=== PATIENT | male | born 1985 | race Hispanic/Latino ===

== ENCOUNTER 2017-08-06 20:28 | Emergency (ER) | payer BC ==
[~2017-08-06] VITALS: Ht 175.3 cm; Wt 117.9 kg
[~2017-08-06 20:28] MED LIST: IBP800T PO
--- OUTSIDE RECORDS SUMMARY | 2017-08-06 20:37 | XMS REPORT ---
Author Author NENA TEIXEIRA Organization [employer] Address Unknown Phone Unavailable Care Team Providers Care Helicopter Officer Name Role Phone NENA TEIXEIRA CP Unavailable Allergies No Known Allergies Problems Problem Type Condition Code Onset Dates Condition Status Problem Acute upper respiratory infections of unspecified site 465.9 Active Problem Acute pharyngitis 462 Active Problem Personal history of noncompliance with medical treatment, presenting hazards to health V15.81 Active Problem Other malaise and fatigue 780.79 Active Problem Unspecified constipation 564.00 Active Problem Hypertension 401.9 Active Problem Polyuria 788.42 Active Problem Diabetes mellitus without mention of complication, type II or unspecified type, uncontrolled 250.02 Active Problem Unspecified hemorrhoids without mention of complication 455.6 Active Problem Family history of diabetes mellitus V18.0 Active Assessment Abnormal LFTs R79.89 Active Problem Cough 786.2 Active Problem Other voice disturbance 784.49 Active Medications No Known Medications Procedures Procedure Coding System Code Date ACUTE HEPATITIS PANEL CPT-4 99231 Aug 18, 2015 Results No Known Results Summary Purpose eClinicalWorks Submission
--- OUTSIDE RECORDS SUMMARY | 2017-08-06 20:37 | XMS REPORT ---
Author Author NENA TEIXEIRA Organization [employer] Address Unknown Phone Unavailable Care Team Providers Care Home Appliance Installer Name Role Phone NENA TEIXEIRA CP Unavailable Allergies No Known Allergies Problems Problem Type Condition ICD-9 Code Onset Dates Condition Status Problem Acute upper respiratory infections of unspecified site 465.9 Active Problem Acute pharyngitis 462 Active Problem Personal history of noncompliance with medical treatment, presenting hazards to health V15.81 Active Problem Cough 786.2 Active Problem Other voice disturbance 784.49 Active Problem Other malaise and fatigue 780.79 Active Problem Unspecified constipation 564.00 Active Problem Hypertension 401.9 Active Problem Polyuria 788.42 Active Problem Diabetes mellitus without mention of complication, type II or unspecified type, uncontrolled 250.02 Active Problem Unspecified hemorrhoids without mention of complication 455.6 Active Problem Family history of diabetes mellitus V18.0 Active Medications No Known Medications Results No Known Results Summary Purpose eClinicalWorks Submission
--- OUTSIDE RECORDS SUMMARY | 2017-08-06 20:37 | XMS REPORT ---
Author Author NENA TEIXEIRA Organization [employer] Address Unknown Phone Unavailable Care Team Providers Care Furniture Shampooer Name Role Phone NENA TEIXEIRA CP Unavailable Allergies No Known Allergies Problems Problem Type Condition Code Onset Dates Condition Status Problem Personal history of noncompliance with medical treatment, presenting hazards to health V15.81 Active Problem Diabetes mellitus without mention of complication, type II or unspecified type, uncontrolled 250.02 Active Problem Acute pharyngitis 462 Active Problem Eye exam abnormal 793.99 Jul 19, 2015 Active Problem Other malaise and fatigue 780.79 Active Problem Hypertension 401.9 Active Problem Family history of diabetes mellitus V18.0 Active Problem Polyuria 788.42 Active Problem Unspecified constipation 564.00 Active Problem Unspecified hemorrhoids without mention of complication 455.6 Active Problem Cough 786.2 Active Problem Other voice disturbance 784.49 Active Problem Acute upper respiratory infections of unspecified site 465.9 Active Medications No Known Medications Results No Known Results Summary Purpose eClinicalWorks Submission
--- OUTSIDE RECORDS SUMMARY | 2017-08-06 20:37 | XMS REPORT ---
Author Author NENA TEIXEIRA Organization [employer] Address Unknown Phone Unavailable Care Team Providers Care Stockbroker Name Role Phone NENA TEIXEIRA CP Unavailable Allergies No Known Allergies Problems Problem Type Condition Code Onset Dates Condition Status Problem Diabetes mellitus without mention of complication, type II or unspecified type, uncontrolled 250.02 Active Problem Family history of diabetes mellitus V18.0 Active Problem Polyuria 788.42 Active Problem Ingrown toenail L60.0 Active Problem Hypertension 401.9 Active Problem Diabetes E11.9 Active Problem Unspecified constipation 564.00 Active Problem Unspecified hemorrhoids without mention of complication 455.6 Active Problem Eye exam abnormal 793.99 Jul 19, 2015 Active Problem Other malaise and fatigue 780.79 Active Problem Other voice disturbance 784.49 Active Problem Acute upper respiratory infections of unspecified site 465.9 Active Problem Personal history of noncompliance with medical treatment, presenting hazards to health V15.81 Active Problem Cough 786.2 Active Problem Acute pharyngitis 462 Active Medications No Known Medications Results No Known Results Summary Purpose eClinicalWorks Submission
--- OUTSIDE RECORDS SUMMARY | 2017-08-06 20:37 | XMS REPORT ---
Author Author NENA TEIXEIRA [facility] eClinicalWorks Address Unknown Phone Unavailable Care Team Providers Care Nurse Sane Name Role Phone NENA TEIXEIRA CP Unavailable Allergies, Adverse Reactions, Alerts Substance Reaction Event Type N.K.D.A. Info Not Available Non Drug Allergy Problems Problem Type Condition Code Onset Dates [...] hemorrhoids without mention of complication 455.6 Active Assessment Type 2 diabetes mellitus with complication E11.8 Active Problem Cough 786.2 Active Problem Other voice disturbance 784.49 Active Problem Acute upper respiratory infections of unspecified site 465.9 Active Medications Medication Code System Code Instructions Start Date End Date Status Dosage Norvasc [facility] [address]-76 10 MG Once a day Jun 21, 2014 1 tablet by Oral route 1 time per day metformin [facility] [address]-81 1,000 mg 2 times a day Jun 21, 2014February 1 tablet by Oral route 2 times per day Lisinopril-Hydrochlorothiazide [facility] [address]-03 20-25 MG Once a day Jun 21, 2014 take 1 tablet by Oral route 1 time per day Bydureon [facility] [address]-98 2 MG Subcutaneous once a week Sep 27, 2015 Oct 27, 2015 2mg Procedures Procedure Coding System Code Date MICROALBUMIN, QUANTITATIVE CPT-4 02380 Sep 27, 2015 Office Visit, Est Pt., Level 3 CPT-4 79588 Sep 27, 2015 MICROALBUMIN, SEMIQUANT CPT-4 57982 Sep 27, 2015 Vital Signs Date/Time: Sep 27, 2015 Temperature 98.1 F Weight 261.7 lbs Height 69 in BMI 38.64 Index Blood Pressure Diastolic 78 mmHg Blood Pressure Systolic 138 mmHg Cardiac Monitoring Heart Rate 84 bpm Results Name Result Date Reference Range Unit Abnormality Flag MICROALBUMIN, URINE (IN HOUSE) MICROALBUMIN/CREATININE RATIO, URINE Summary Purpose eClinicalWorks Submission
--- OUTSIDE RECORDS SUMMARY | 2017-08-06 20:37 | XMS REPORT ---
Author Author NENA TEIXEIRA Organization [employer] Address Unknown Phone Unavailable Care Team Providers Care Complex Director Name Role Phone NENA TEIXEIRA CP Unavailable Allergies, Adverse Reactions, Alerts Substance Reaction Event Type N.K.D.A. Info Not Available Non Drug Allergy Problems Problem Type Condition ICD-9 Code Onset [...] history of diabetes mellitus V18.0 Active Assessment Hypertension 401.9 Active Assessment Sore throat 462 Active Problem Cough 786.2 Active Problem Other voice disturbance 784.49 Active Medications Medication Code System Code Instructions Start Date End Date Status Dosage Lisinopril-Hydrochlorothiazide [facility] [address]-69 20-25 MG Once a day Jun 21, 2014 take 1 tablet by Oral route 1 time per day Norvasc [facility] [address]-24 10 MG Once a day Jun 21, 2014 1 tablet by Oral route 1 time per day Amoxicillin [facility] [address]-89 500 MG Orally 3 times a day Jul 11, 2015 Jul 18, 2015 1 tablet Procedures Procedure Coding System Code Date Office Visit, Est Pt., Level 3 CPT-4 78378 Jul 11, 2015 Vital Signs Date/Time: Jul 11, 2015 Temperature 98.0 F Weight 262.4 lbs Height 69 in BMI 38.75 Index Blood Pressure Diastolic 100 mmHg Blood Pressure Systolic 160 mmHg Cardiac Monitoring Heart Rate 86 bpm Results No Known Results Summary Purpose eClinicalWorks Submission
--- OUTSIDE RECORDS SUMMARY | 2017-08-06 20:37 | XMS REPORT ---
Author Author NENA TEIXEIRA Organization [employer] Address Unknown Phone Unavailable Care Team Providers Care Account Collector Name Role Phone NENA TEIXEIRA CP Unavailable [...] history of diabetes mellitus V18.0 Active Assessment Type 2 diabetes mellitus with unspecified complications E11.8 Active Problem Cough 786.2 Active Problem Other voice disturbance 784.49 Active Medications No Known Medications Results No Known Results Summary Purpose eClinicalWorks Submission
--- OUTSIDE RECORDS SUMMARY | 2017-08-06 20:37 | XMS REPORT ---
Author Author NENA TEIXEIRA Organization [employer] Address Unknown Phone Unavailable Care Team Providers Care Associate Team Physician Name Role Phone NENA TEIXEIRA CP Unavailable [...]
--- OUTSIDE RECORDS SUMMARY | 2017-08-06 20:37 | XMS REPORT ---
Author Author NENA TEIXEIRA [facility] eClinical[employer] Address Unknown Phone Unavailable Care Team Providers Care Recreation Instructor Name Role Phone NENA TEIXEIRA CP Unavailable [...] Problem Other malaise and fatigue 780.79 Active Assessment Ingrown toenail L60.0 Active Problem Other voice disturbance 784.49 Active Problem Acute upper respiratory infections of unspecified site 465.9 Active Assessment Diabetes E11.9 Active Problem Personal history of noncompliance with medical treatment, presenting hazards to health V15.81 Active Problem Cough 786.2 Active Problem Acute pharyngitis 462 Active Medications Medication Code System Code Instructions Start Date End Date Status Dosage Bydureon [facility] 04418147949 2 MG INJECT 2 MG SUBCUTANEOUSLY ONCE A WEEK Lisinopril [facility] [address]-21 20 mg Orally Once a day January 31, 2016 1 tablet Keflex [facility] [address]-34 500 MG Orally Twice a day May 15, 2016 May 22, 2016 2 capsule Norvasc [facility] [address]-66 10 MG Once a day Jun 21, 2014 1 tablet by Oral route 1 time per day MetFORMIN HCl ER [facility] [address]-96 500 MG Orally 2 times a day Aug 01, 2015 2 tablet with evening meal Invokana [facility] [address]-22 100 MG Orally Once a day January 31, 2016 1 tablet Procedures Procedure Coding System Code Date GLYCATED HEMOGLOBIN TEST CPT-4 37759 May 22, 2016 Office Visit, Est Pt., Level 3 CPT-4 80753 May 22, 2016 Vital Signs Date/Time: May 22, 2016 Cardiac Monitoring Heart Rate 88 bpm Weight 268.7 lbs Height 69 in BMI 39.68 Index Blood Pressure Diastolic 90 mmHg Blood Pressure Systolic 140 mmHg Results No Known Results Summary Purpose eClinicalWorks Submission
--- OUTSIDE RECORDS SUMMARY | 2017-08-06 20:37 | XMS REPORT ---
Author Author NENA TEIXEIRA Organization [employer] Address Unknown Phone Unavailable Care Team Providers Care Solution Spec Name Role Phone NENA TEIXEIRA CP Unavailable [...]
--- OUTSIDE RECORDS SUMMARY | 2017-08-06 20:38 | XMS REPORT ---
Author Author NENA TEIXEIRA [facility] eClinicalWorks Address Unknown Phone Unavailable Care Team Providers Care Carrier Associate Name Role Phone NENA TEIXEIRA CP Unavailable [...] history of diabetes mellitus V18.0 Active Assessment Diabetes mellitus without mention of complication, type II or unspecified type, uncontrolled 250.02 Active Assessment Encounter to establish care V65.8 Active Problem Cough 786.2 Active Assessment Hypertension 401.9 Active Problem Other voice disturbance 784.49 Active Medications Medication Code System Code Instructions Start Date End Date Status Dosage metformin [facility] [address]-41 1,000 mg 2 times a day Jun 21, 2014February 1 tablet by Oral route 2 times per day MetFORMIN HCl ER [facility] [address]-62 500 MG Orally 2 times a day Aug 01, 2015 2 tablet with evening meal Norvasc [facility] [address]-98 10 MG Once a day Jun 21, 2014 1 tablet by Oral route 1 time per day Lisinopril-Hydrochlorothiazide [facility] [address]-51 20-25 MG Once a day Jun 21, 2014 take 1 tablet by Oral route 1 time per day Procedures Procedure Coding System Code Date Office Visit, Est Pt., Level 4 CPT-4 10079 Aug 01, 2015 GLYCATED HEMOGLOBIN TEST CPT-4 92657 Aug 01, 2015 Vital Signs Date/Time: Aug 01, 2015 Temperature 98.8 F Weight 265.0 lbs Height 69 in BMI 39.13 Index Blood Pressure Diastolic 92 mmHg Blood Pressure Systolic 146 mmHg Cardiac Monitoring Heart Rate 80 bpm Results Name Result Date Reference Range Unit Abnormality Flag A1C (IN HOUSE) Summary Purpose eClinicalWorks Submission
--- OUTSIDE RECORDS SUMMARY | 2017-08-06 20:38 | XMS REPORT | Continuity of Care Document ---
Author Author [facility] Address Unknown Phone Unavailable Allergies Medications Problems Date Dx Coded Attending Type Code Diagnosis Diagnosed By 01/09/2010 401.1 HYPERTENSION, BENIGN ESSENTIAL 01/09/2010 MAYELA DDS, PEGGY F 401.1 HYPERTENSION, BENIGN ESSENTIAL 01/09/2010 CASTANO DO, ADAL K 401.1 HYPERTENSION, BENIGN ESSENTIAL 01/09/2010 CASTANO DO, ADAL K 401.1 HYPERTENSION, BENIGN ESSENTIAL 01/09/2010 CASTANO DO, ADAL K 401.1 HYPERTENSION, BENIGN ESSENTIAL 12/12/2011 462 PHARYNGITIS ACUTE 12/12/2011 MAYELA DDS, PEGGY F 462 PHARYNGITIS ACUTE 12/12/2011 CASTANO DO, ADAL K 462 PHARYNGITIS ACUTE 12/12/2011 CASTANO DO, ADAL K 462 PHARYNGITIS ACUTE 12/12/2011 CASTANO DO, ADAL K 462 PHARYNGITIS ACUTE 09/16/2012 465.9 UPPER RESPIRATORY INFECTION 09/16/2012 784.49 HOARSENESS 09/16/2012 786.2 COUGH 09/16/2012 MAYELA DDS, PEGGY F 465.9 UPPER RESPIRATORY INFECTION 09/16/2012 MAYELA DDS, PEGGY F 784.49 HOARSENESS 09/16/2012 MAYELA DDS, PEGGY F 786.2 COUGH 09/16/2012 CASTANO DO, ADAL K 465.9 UPPER RESPIRATORY INFECTION 09/16/2012 CASTANO DO, ADAL K 784.49 HOARSENESS 09/16/2012 CASTANO DO, ADAL K 786.2 COUGH 09/16/2012 CASTANO DO, ADAL K 465.9 UPPER RESPIRATORY INFECTION 09/16/2012 CASTANO DO, ADAL K 784.49 HOARSENESS 09/16/2012 CASTANO DO, ADAL K 786.2 COUGH 09/16/2012 CASTANO DO, ADAL K 465.9 UPPER RESPIRATORY INFECTION 09/16/2012 CASTANO DO, ADAL K 784.49 HOARSENESS 09/16/2012 OMAIRA CAMPA ADAL K 786.2 COUGH 05/11/2013 250.02 DIABETES MELLITUS WITHOUT MENTION OF COMPLICATION TYPE II OR UNSPECIFIED TYPE UNCONTROLLED 05/11/2013 788.42 POLYURIA 05/11/2013 V18.0 FAMILY HISTORY OF DIABETES MELLITUS 05/11/2013 MAYELA DDS, PEGGY F 250.02 DIABETES MELLITUS WITHOUT MENTION OF COMPLICATION TYPE II OR UNSPECIFIED TYPE UNCONTROLLED 05/11/2013 MAYELA DDS, PEGGY F 788.42 POLYURIA 05/11/2013 MAYELA DDS, PEGGY F V18.0 FAMILY HISTORY OF DIABETES MELLITUS 05/11/2013 CASTANO DO ADAL K 250.02 DIABETES MELLITUS WITHOUT MENTION OF COMPLICATION TYPE II OR UNSPECIFIED TYPE UNCONTROLLED 05/11/2013 CASTANO DO ADAL K 788.42 POLYURIA 05/11/2013 CASTANO DO ADAL K V18.0 FAMILY HISTORY OF DIABETES MELLITUS 05/11/2013 OMAIRA CAMPA ADAL K 250.02 DIABETES MELLITUS WITHOUT MENTION OF COMPLICATION TYPE II OR UNSPECIFIED TYPE UNCONTROLLED 05/11/2013 CASTANO DO ADAL K 788.42 POLYURIA 05/11/2013 CASTANO DO ADAL K V18.0 FAMILY HISTORY OF DIABETES MELLITUS 05/11/2013 CASTANO DO ADAL K 250.02 DIABETES MELLITUS WITHOUT MENTION OF COMPLICATION TYPE II OR UNSPECIFIED TYPE UNCONTROLLED 05/11/2013 CASTANO DO ADAL K 788.42 POLYURIA 05/11/2013 CASTANO DO ADAL K V18.0 FAMILY HISTORY OF DIABETES MELLITUS 01/11/2014 OMAIRA CAMPA ADAL K 455.6 HEMORRHOIDS NOS 01/11/2014 CASTANO DO ADAL K 564.00 CONSTIPATION 01/11/2014 CASTANO DO, ADAL K 455.6 HEMORRHOIDS NOS 01/11/2014 CASTANO DO, ADAL K 564.00 CONSTIPATION 01/11/2014 CASTANO DO, ADAL K 455.6 HEMORRHOIDS NOS 01/11/2014 CASTANO DO, ADAL K 564.00 CONSTIPATION 06/21/2014 CASTANO DO ADAL K 780.79 OTHER MALAISE AND FATIGUE 06/21/2014 CASTANO DO ADAL K 780.79 OTHER MALAISE AND FATIGUE 08/16/2014 OMAIRA CAMPA ADAL K V15.81 PERSONAL HISTORY OF NONCOMPLIANCE WITH MEDICAL TREATMENT PRESENTING HAZARDS TO HEALTH Procedures Code Description [place] [address] A1C (IN-HOUSE) 21136 MICRO ALBUMIN-IN HOUSE 01/11/2014 26328 A1C (IN-HOUSE) 93664 MICROALBUMIN 12731 MICRO ALBUMIN-IN HOUSE 01/11/2014 Results Encounters ACCT No. Visit Date/Time Discharge Status Pt. Type Provider Facility Loc./Unit Complaint [id number] 08/16/2014 17:21:00 08/16/2014 23: 59:59 [facility] Outpatient ADAL CASTANO DO [id number] 06/21/2014 17:24:00 06/21/2014 23: 59:59 [facility] Outpatient ADAL CASTANO DO [id number] 01/11/2014 14:13:00 01/11/2014 23: 59:59 [facility] Outpatient ADAL CASTANO DO [id number] 10/03/2012 15:09:00 10/03/2012 23: 59:59 [facility] Outpatient PEGGY PEDRO DDS [id number] 05/11/2013 17:41:00 Document Registration
--- OUTSIDE RECORDS SUMMARY | 2017-08-06 20:38 | XMS REPORT ---
Author Author NENA TEIXEIRA Organization eClinicalWorks Address Unknown Phone Unavailable Care Team Providers Care Lap Winder Name Role Phone NENA TEIXEIRA CP Unavailable [...]
--- NOTE | 2017-08-06 21:06 | ED Chest Pain ---
General Chief Complaint: Chest Wall/Rib Pain Stated Complaint: CHEST PAIN Source: patient Exam Limitations: no limitations History of Present Illness Time seen by provider: 21:05 Initial Comments To ER with a one-week history of right sided chest wall pain just to the right of the sternal border. This began after jumping rope and accidentally falling on his own right elbow. Pain is worse with deep breathing. Improves throughout the day when he takes Tylenol or Motrin but it recurs when he awakens in the morning and has been laying motionless all night and without any Tylenol or Motrin. Timing/Duration: 2-3 days Severity/Quality: moderate Location: central Radiation: no radiation Allergies and Home Medications Allergies Coded Allergies: No Known Drug Allergies (Unverified , 10/18/12) Home Medications Ibuprofen 800 Mg Tab, 800 MG PO Q8HR PRN, #30 Prescribed by: CINDY STANFORD on 10/18/12 0776 Review of Systems Constitutional: see HPI EENTM: No Symptoms Reported Respiratory: No Symptoms Reported Cardiovascular: See HPI, Chest Pain Gastrointestinal: No Symptoms Reported Genitourinary: No Symptoms Reported Musculoskeletal: no symptoms reported Skin: no symptoms reported Psychiatric/Neurological: No Symptoms Reported Past Vjjzola-Hnppgm-Psizpb Hx Patient Social History Recent Foreign Travel: No Contact w/Someone Who Travel: No Physical Exam Vital Signs Vital Sign - Last 12Hours 08/06/17 20:53 Temp 98.5 Pulse 92 Resp 20 B/P (MAP) 132/102 Pulse Ox 95 O2 Delivery Room Air Capillary Refill : General Appearance: No Apparent Distress, WD/WN HEENT: PERRL/EOMI, TMs Normal Neck: Full Range of Motion, Supple Respiratory: Normal Breath Sounds, No Accessory Muscle Use, No Respiratory Distress Cardiovascular: Regular Rate, Rhythm, Normal Peripheral Pulses Gastrointestinal: Normal Bowel Sounds, Non Tender, Soft Extremity: Normal Capillary Refill, Normal Inspection Neurologic/Psychiatric: Alert, Oriented x3, No Motor/Sensory Deficits, Normal Mood/Affect Skin: Normal Color, Warm/Dry, Other (the right sternal border is tender to palpation but there is no crepitus) Progress/Results/Core Measures Results/Orders My Orders Orders - WILTON BEAUCHAMP APRN Ct Chest Wo (08/06/17 21:00) Vital Signs/I&O Vital Sign - Last 12Hours 08/06/17 20:53 Temp 98.5 Pulse 92 Resp 20 B/P (MAP) 132/102 Pulse Ox 95 O2 Delivery Room Air Departure Impression Impression: Primary Impression: Chest wall contusion Disposition: 01 HOME, SELF-CARE Condition: Stable Departure-Patient Inst. Decision time for Depature: 21:20 Referrals: NO,LOCAL PHYSICIAN (PCP) Primary Care Physician Patient Instructions: CHEST CONTUSION Add. Discharge Instructions: 1. Continue to use Tylenol and Motrin for any pain 2. Return to ER for any concerns 3. Follow-up with your doctor later this week for recheck Was on All discharge instructions reviewed with patient and/or family. Voiced understanding. WILTON BEAUCHAMP APRN Aug 06, 2017 21:06
--- NOTE | 2017-08-06 21:30 | Diagnostic Imaging Report ---
PROCEDURE: CT chest without contrast. TECHNIQUE: Multiple contiguous axial images were obtained through the chest without the use of intravenous contrast. INDICATION: Chest pain. COMPARISON: None. FINDINGS: The heart and mediastinal structures are normal. Lungs are clear. There is no pneumothorax, effusion or infiltrate. No mass or nodule is seen. Osseous structures and visualized upper abdominal solid organs are normal. IMPRESSION: Negative chest without contrast. Dictated by: Dictated on workstation # [id number]
[2017-08-06 21:43] VITALS: BP 131/99
== END 2017-08-06 21:43 | disposition home or self-care (01) ==
LOC: EDUNIT# 20:28 → ER 20:31
DX: S20.211A Contusion of right front wall of thorax, initial encounter (principal); W18.39XA Other fall on same level, initial encounter; Y93.56 Activity, jumping rope
CPT/HCPCS: 71250; 99283

== ENCOUNTER 2017-10-15 23:58 | Emergency (ER) | payer BC ==
[~2017-10-15] VITALS: Ht 175.3 cm; Wt 120.2 kg
--- OUTSIDE RECORDS SUMMARY | 2017-10-16 00:06 | XMS REPORT | Continuity of Care Document ---
Author Author [facility] Address Unknown Phone Unavailable Allergies Medications Problems Date Dx Coded Attending Type Code Diagnosis Diagnosed By 01/09/2010 401.1 HYPERTENSION, BENIGN ESSENTIAL 01/09/2010 AMYELA DDS, PEGGY F 401.1 HYPERTENSION, BENIGN ESSENTIAL [...] Procedures Code Description [place] [address] A1C (IN-HOUSE) 89369 MICRO ALBUMIN-IN HOUSE 01/11/2014 81534 A1C (IN-HOUSE) 45740 MICROALBUMIN 90852 MICRO ALBUMIN-IN HOUSE 01/11/2014 Results Encounters ACCT No. Visit Date/Time Discharge Status Pt. Type Provider Facility Loc./Unit Complaint [id number] 08/16/2014 17:21:00 08/16/2014 23: 59:59 [facility] Outpatient ADAL CASTANO DO [id number] 06/21/2014 17:24:00 06/21/2014 23: 59:59 [facility]LS Outpatient ADAL CASTANO DO [id number] 01/11/2014 14:13:00 01/11/2014 23: 59:59 [facility] Outpatient ADAL CASTANO DO [id number] 10/03/2012 15:09:00 10/03/2012 23: 59:59 [facility] Outpatient PEGGY PEDRO DDS [id number] 05/11/2013 17:41:00 Document Registration
[2017-10-16] MEDS ORDERED: FAMOTIDINE 20 MG (PEPCID) TABLET PO STA (00:21)
[2017-10-16] MEDS ORDERED: diphenhydrAMINE 25 MG TAB (BENADRYL) PO ONE (00:30)
[2017-10-16] MEDS ORDERED: predniSONE 20 MG TAB PO ONE (00:30)
--- NOTE | 2017-10-16 00:37 | ED Integumentary General ---
General Chief Complaint: Allergic Reaction Stated Complaint: RASH ALL OVER Nursing Triage Note: GENERALIZED HIVES/ITCHING. DENIES OTHER SYMPTOMS, FEELING SOA Source: patient Exam Limitations: no limitations History of Present Illness Time seen by provider: 00:16 Initial Comments Here with report of generalized itching and hives. Initially told triage that he was a little short of air although does not complain of that to me. Denies throat swelling or itching. Denies abdominal pain or discomfort. He did use a new soap this evening and everything is worse afterwards. Admits that he was a little itchy this morning when he woke up though. He is not sure if he used the soap yesterday are not during his shower. Never had anything like this before. Timing/Duration: this morning, getting worse Severity: moderate Location: generalized Possible Cause: exposure to allergen Modifying Factors: improves with calamine lotion Associated Symptoms: change in skin texture, No fever, hives, No nasal congestion, No sore throat Allergies and Home Medications Allergies Coded Allergies: No Known Drug Allergies (Unverified , 10/18/12) Home Medications No Active Prescriptions or Reported Meds Constitutional: see HPI, No chills, No fever EENTM: no symptoms reported Respiratory: no symptoms reported Cardiovascular: no symptoms reported Gastrointestinal: no symptoms reported Genitourinary: no symptoms reported Skin: see HPI, change in color Past Brbvscc-Prxpzb-Luhtml Hx Patient Social History Alcohol Use: Regular Use Number of Drinks Today: 4 Alcohol Beverage of Choice: Beer Recreational Drug Use: No Smoking Status: Never a Smoker 2nd Hand Smoke Exposure: No Recent Foreign Travel: No Contact w/Someone Who Travel: No Recent Infectious Disease Expo: No Recent Hopitalizations: No Immunizations Up To Date Tetanus Booster (TDap): Unknown Seasonal Allergies Seasonal Allergies: No Surgeries History of Surgeries: No Respiratory History of Respiratory Disorde: No Cardiovascular History of Cardiac Disorders: Yes Cardiac Disorders: Hypertension Neurological History of Neurological Disord: No Genitourinary History of Genitourinary Disor: No Gastrointestinal History of Gastrointestinal Di: No Musculoskeletal History of Musculoskeletal Dis: No Endocrine History of Endocrine Disorders: Yes Endocrine Disorders: Diabetes, Non-Insulin dep HEENT History of HEENT Disorders: No Cancer History of Cancer: No Psychosocial History of Psychiatric Problem: No Integumentary History of Skin or Integumenta: No Reviewed Nursing Assessment Reviewed/Agree w Nursing PMH: Yes Family Medical History Significant Family History: No Pertinent Family Hx Physical Exam Vital Signs Vital Sign - Last 12Hours 10/16/17 00:10 Temp 97.2 Pulse 96 Resp 18 B/P (MAP) 160/111 Pulse Ox 96 O2 Delivery Room Air Capillary Refill : Less Than 3 Seconds General Appearance: WD/WN, no apparent distress Neck: full range of motion, supple Cardiovascular: regular rate, rhythm, no murmur Respiratory: lungs clear, normal breath sounds Gastrointestinal: non tender, soft Extremities: normal range of motion, non-tender Neurologic/Psychiatric: alert, oriented x 3 Skin: warm/dry, other (generalized hives to essentially all surfaces.) Progress/Results/Core Measures Results/Orders My Orders Orders - GINNY LEOS MD Famotidine Tablet (Pepcid Tablet) (10/16/17 00:21) Diphenhydramine Tablet (Benadryl Tablet) (10/16/17 00:30) Prednisone Tablet (Deltasone Tablet) (10/16/17 00:30) Medications Given in ED Current Medications Medications Dose Ordered Sig/Ame Route Start Time Stop Time Status Last Admin Dose Admin Diphenhydramine HCl 50 mg ONCE ONCE PO 10/16/17 00:30 10/16/17 00:31 DC 10/16/17 00:27 50 MG Prednisone 40 mg ONCE ONCE PO 10/16/17 00:30 10/16/17 00:31 DC 10/16/17 00:27 40 MG Vital Signs/I&O Vital Sign - Last 12Hours 10/16/17 00:10 Temp 97.2 Pulse 96 Resp 18 B/P (MAP) 160/111 Pulse Ox 96 O2 Delivery Room Air Blood Pressure Mean: 127 Progress Note : Progress Note Seen and evaluated. Benadryl 50 mg by mouth, prednisone 40 mg by mouth and Pepcid 20 mg by mouth ordered. Monitor patient. 0103: Hives are improving and itching is almost gone. Discharged home with return precautions. Patient verbalize understanding instructions and agreement with plan. Departure Impression Impression: Primary Impression: Allergic reaction to chemical substance Qualified Codes: T65.91XA - Toxic effect of unspecified substance, accidental (unintentional), initial encounter Disposition: 01 HOME, SELF-CARE Condition: Improved Departure-Patient Inst. Decision time for Depature: 01:04 Referrals: [facility] (PCP) Primary Care Physician NENA TEIXEIRA (Family) Primary Care Physician Patient Instructions: Hives (DC) Add. Discharge Instructions: All discharge instructions reviewed with patient and/or family. Voiced understanding. You may take Benadryl 50 mg every 6 hours as needed for itching. You should take Pepcid 20 mg twice daily for the next 4 days. Take other medications as directed. Follow-up with your Dr. in a few days for recheck. Stop using the new soap. Return for worsening, fever, vomiting, weakness, breathing problems or other concerns as needed. Scripts Prednisone (Prednisone) 20 Mg Tab 40 MG PO DAILY, #8 TAB 0 Refills Prov: GINNY LEOS MD 10/16/17 GINNY LEOS MD Oct 16, 2017 00:37
[2017-10-16] MEDS ORDERED: PRD20T PO (01:07)
[2017-10-16 01:13] VITALS: BP 158/102
== END 2017-10-16 01:19 | disposition home or self-care (01) ==
LOC: EDUNIT# 23:58 → ER 10-16 00:01
DX: L50.0 Allergic urticaria (principal); T78.49XA Other allergy, initial encounter; I10 Essential (primary) hypertension; E11.9 Type 2 diabetes mellitus without complications
CPT/HCPCS: 99283

== ENCOUNTER 2020-03-15 02:37 | Emergency (ER) | payer SELFPAY ==
[~2020-03-15] VITALS: Ht 175 cm; Wt 109.6 kg
[~2020-03-15 02:37] MED LIST changes: +PRD20T PO
--- OUTSIDE RECORDS SUMMARY | 2020-03-15 02:46 | XMS REPORT ---
Author Author Tone KOHLER Organization [facility] Address [address] [place] [address] Care Team Providers Care Cloth Dye Range Operator Name Role Phone DAHIANA KOHLER Unavailable PROBLEMS Type Condition ICD9-CM Code EMP53-FV Code Onset Dates Condition S tatus SNOMED Code Problem Diabetes E11.9 Active 083480750 Problem Ingrown toenail L60.0 Active 4002 81257 Problem Hypertension 401.9 Active 5867266 3 Problem Eye exam abnormal 793.99 Jul, Active 454934341 ALLERGIES No Information ENCOUNTERS Encounter Location Date Diagnosis [facility] [address] [id number] [address] [place] [phone] Apr, Acute costochondritis M94.0 [facility] [address] [facility] [place] [id number] [address] [place] [phone] March, [facility] [address] [facility] [place] [id number] [address] [place] [phone] Feb, [facility] [address] [place] [address] [id number] [address] [place] [phone] Feb, [facility] [address] [facility] [place] [id number] [address] [place] [phone] Dec, Sore throat J02.9 [facility] [address] [facility] [place] [id number] [address] [place] [phone] Sep, Yeast dermatitis of penis B3 7.49 and Exposure to chlamydia Z20.2 [facility] [address] [facility] [place] [id number] [address] [place] [phone] Aug, [facility] [address] [facility] [place] [id number] [address] [place] [phone] May, Diabetes E11.9 and Ingrown t oenail L60.0 [facility] [address] [facility] [place] [id number] [address] [place] [phone] Apr, Ingrowing toenail with infec tion L60.0 [facility] [address] [id number] [address] [place] [phone] Feb, [facility] [address] [facility] [place] [id number] [address] [place] [phone] Jan, Diabetes E11.9 and Eczema L3 0.9 [facility] [address] [facility] [place] [id number] [address] [place] [phone] Sep, [facility] [address] [facility] [place] [id number] [address] [place] [phone] Sep, Type 2 diabetes mellitus wit h complication E11.8 [facility] [address] [facility] [place] [id number] [address] [place] [phone] Aug, [facility] [address] [facility] [place] [id number] [address] [place] [phone] Aug, Type 2 diabetes mellitus wit h unspecified complications E11.8 [facility] [address] [facility] [place] [id number] [address] [place] [phone] Aug, Abnormal LFTs R79.89 [facility] [address] [facility] [place] [id number] [address] [place] [phone] Aug, Abnormal LFTs R79.89 [facility] [address] [facility] [place] [id number] [address] [place] [phone] Aug, Type 2 diabetes mellitus wit h hyperglycemia E11.65 and Diabetes mellitus without mention of complication, type II or unspecified type, uncontrolled 250.02 [facility] [address] [facility] [place] [id number] [address] [place] [phone] Aug, [facility] [address] [facility] [place] [id number] [address] [place] [phone] Jul, [facility] [address] [facility] [place] [id number] [address] [place] [phone] 14 Jul, 2015 Encounter to establish care V65.8 ; Diabetes mellitus without mention of complication, type II or unspecified type, uncontrolled 250.02 and Hypertension 401.9 [facility] [address] [id number] [address] [place] [phone] Jun, Sore throat 462 and Hyperten sandy 401.9 [facility] [address] [id number] [address] [place] [phone] Feb, [facility] [address] [id number] [address] [place] [phone] Feb, [facility] [address] [id number] [address] [place] [phone] Jul, [facility] [address] [id number] [address] [place] [phone] Jul, [facility] [address] [id number] [address] [place] [phone] Jun, [facility] [address] [id number] [address] [place] [phone] Jun, [facility] [address] [id number] [address] [place] [phone] Dec, [facility] [address] [id number] [address] [place] [phone] Dec, [facility] [address] [id number] [address] [place] [phone] Sep, [facility] [address] [id number] [address] [place] [phone] Sep, [facility] [address] [id number] [address] [place] [phone] Apr, [facility] [address] [id number] [address] [place] [phone] Apr, [facility] [address] [id number] [address] [place] [phone] Aug, [facility] [address] [facility] [place] [id number] [address] [place] [phone] Aug, [facility] [address] [facility] [place] [id number] [address] [place] [phone] Aug, [facility] [address] [facility] [place] [id number] [address] [place] [phone] Aug, [facility] [address] [facility] [place] [id number] [address] [place] [phone] Nov, IMMUNIZATIONS No Known Immunizations SOCIAL HISTORY Never Assessed REASON FOR VISIT med order PLAN OF CARE VITAL SIGNS MEDICATIONS Medication Instructions Dosage Frequency Start Date End Date Duration Kya leon Albendazole 200 mg Orally one time 2 tablets Feb, 1 dose Active RESULTS No Results PROCEDURES No Known procedures INSTRUCTIONS MEDICATIONS ADMINISTERED No Known Medications MEDICAL (GENERAL) HISTORY Type Description Date Medical History hypertension Medical History type II diabetes Dx 2013 Medical History Eye exam abnormal
--- OUTSIDE RECORDS SUMMARY | 2020-03-15 02:46 | XMS REPORT ---
Author Author Tone [place] Doctor Organization [facility] Address Unknown Phone Unavailable Care Team Providers Care Truck Striker Name Role Phone Migration, Doctor Unavailable Unavailable PROBLEMS Type Condition ICD9-CM Code TER97-CI Code Onset Dates Condition S tatus SNOMED Code Problem Ingrown toenail L60.0 Active 4002 57858 Problem Alcohol abuse F10.10 Active 645112 05 Problem Essential hypertension I10 Active 52648964 Problem Diabetes E11.9 Active 764436781 Problem FDC (current) use of insulin Z79.4 Active 655103218 Problem Type 2 diabetes mellitus with hyperglycemia E11.65 Active 41612967 Problem Essential (primary) hypertension I10 Active 07376306 ALLERGIES No Information ENCOUNTERS Encounter Location Date Diagnosis [place] [address] [place] [address] [id number] [place] [phone] Feb, Diabetes E11.9 and Alcohol a buse F10.10 [place] [address] [place] [id number] [place] [phone] Jan, Type 2 diabetes mellitus wit h hyperglycemia E11.65 ; Alcohol abuse F10.10 and Essential hypertension I10 [place] [id number] [place] [id number] Dec, Alcohol abuse F10.10 and Ashanti betes E11.9 [place] [address] [facility] [id number] [address] [place] [id number] Nov, [place] [address] [facility] [id number] [address] [place] [phone] Sep, [place] [address] [place] [id number] [place] [phone] Sep, Type 2 diabetes mellitus wit h hyperglycemia E11.65 ; FDC (current) use of insulin Z79.4 ; Diabetes E11.9 and Essential (primary) hypertension I10 [facility] [address] [id number] [address] [place] [phone] Sep, Elevated blood pressure read ing R03.0 [facility] [address] [place] [id number] [place] [phone] Sep, Upper back strain, initial e ncounter S29.012A [facility] [address] [id number] May, Dysuria R30.0 and Musculoske letal back pain M54.9 [facility] [address] [place] [id number] [place] [phone] Dec, Yeast dermatitis of penis B3 7.49 [facility] [place] [address] [phone] Jul, Pain of left great toe M79.6 [facility] [address] [place] [id number] [place] [phone] Jun, Skin infection L08.9 [place] [address] [address] Apr, Acute costochondritis M94.0 [place] [address] [id number] March, [place] [address] [phone] Feb, [place] [id number] [place] [id number] Feb, [facility] N [address] [id number] Dec, Sore throat J02.9 [place] [address] [place] [id number] [place] [phone] Sep, Yeast dermatitis of penis B3 7.49 and Exposure to chlamydia Z20.2 [place] [address] [place] [id number] [address] [place] [phone] Aug, [facility] [address] [facility] [id number] [address] [place] [phone] May, Diabetes E11.9 and Ingrown t oenail L60.0 [facility] [address] [facility] [id number] [address] [place] [phone] Apr, Ingrowing toenail with infec tion L60.0 [facility] [address] [facility] [id number] [address] [place] [phone] Feb, [facility] [address] [id number] Jan, Diabetes E11.9 and Eczema L3 0.9 [facility] [address] [place] [id number] [place] [phone] Sep, [place] [address] [place] [id number] [address] [place] [phone] Sep, Type 2 diabetes mellitus wit h complication E11.8 [place] [address] [place] [id number] [place] [phone] 16 Aug, 2015 [place] [address] [place] [id number] [place] [phone] Aug, Type 2 diabetes mellitus wit h unspecified complications E11.8 [place] [address] [place] [id number] [address] [place] [phone] Aug, Abnormal LFTs R79.89 [place] [address] [facility] [id number] [address] [place] [phone] Aug, Abnormal LFTs R79.89 [facility] [address] [place] [id number] [address] [place] [phone] Aug, Type 2 diabetes mellitus wit h hyperglycemia E11.65 and Diabetes mellitus without mention of complication, type II or unspecified type, uncontrolled 250.02 [facility] [address] [facility] [id number] [address] [place] [phone] Aug, [facility] [address] [id number] [address] [place] [phone] Jul, [facility] [address] [facility] [id number] [address] [place] [phone] Jul, Encounter to establish care V65.8 ; Diabetes mellitus without mention of complication, type II or unspecified type, uncontrolled 250.02 and Hypertension 401.9 [facility] [address] [id number] [address] [place] [phone] Jun, Sore throat 462 and Hyperten sadny 401.9 [facility] [address] [id number] [address] [place] [phone] Feb, [facility] [address] [id number] [address] [place] [phone] Feb, [facility] [address] [id number] [address] [place] [id number] Jul, [facility] [address] [id number] [address] [place] [phone] Jul, [facility] [address] [id number] [address] [place] [phone] Jun, [facility] [address] [id number] [address] [place] [phone] Jun, [facility] [address] [id number] [address] [place] [phone] Dec, [facility] [address] [id number] [address] [place] [phone] Dec, [facility] [address] [id number] [address] [place] [phone] Sep, [facility] [address] [id number] [address] [place] [phone] Sep, [facility] [address] [id number] [address] [place] [id number] Apr, [facility] [address] [facility] [id number] [address] [place] [id number] Apr, [facility] [address] [id number] [address] [place] [phone] Aug, [facility] [address] [facility] [id number] [address] [place] [phone] Aug, [facility] [address] [facility] [id number] [address] [place] [phone] Aug, [facility] [address] [facility] [id number] [address] [place] [phone] Aug, [facility] [address] [facility] [id number] [address] [place] [phone] Nov, IMMUNIZATIONS No Known Immunizations SOCIAL HISTORY Never Assessed REASON FOR VISIT PLAN OF CARE VITAL SIGNS Height 69 in 2014-08-16 Weight 280.8 lbs 2014-08-16 Temperature 98.8 degrees Fahrenheit 2014-08-16 Heart Rate 88 bpm 2014-08-16 Respiratory Rate 20 2014-08-16 Blood pressure systolic 142 mmHg 2014-08-16 Blood pressure diastolic 92 mmHg 2014-08-16 MEDICATIONS Unknown Medications RESULTS No Results PROCEDURES No Known procedures INSTRUCTIONS MEDICATIONS ADMINISTERED No Known Medications MEDICAL (GENERAL) HISTORY Type Description Date Medical History hypertension Medical History type II diabetes Dx 2013 Medical History Eye exam abnormal Surgical History No Surgical history information
--- OUTSIDE RECORDS SUMMARY | 2020-03-15 02:46 | XMS REPORT ---
Author Author Tone [place] Doctor Organization [facility] Address Unknown Phone Unavailable Care Team Providers Care Television Engineer Name Role Phone Migration, Doctor Unavailable Unavailable PROBLEMS Type Condition ICD9-CM Code [id number] Code Onset Dates Condition S tatus SNOMED Code Problem Ingrown toenail L60.0 Active 4002 57956 Problem Diabetes E11.9 Active 658772512 Problem Eye exam abnormal 793.99 Jul, Active 050502428 Problem Hypertension 401.9 Active 8975123 3 ALLERGIES No Information ENCOUNTERS Encounter Location Date Diagnosis [facility] [address] [id number] [address] [place] [phone] Dec, Yeast dermatitis of penis B3 7.49 [facility] [address] [address] Jul, Pain of left great toe M79.6 75 [facility] [address] [address] Jun, Skin infection L08.9 [facility] [address] [id number] [address] [place] [phone] Apr, Acute costochondritis M94.0 [facility] [address] [id number] [address] [place] [phone] March, [facility] [address] [id number] [address] [place] [phone] Feb, [facility] [address] [phone] Feb, [facility] [address] [facility] [id number] [address] [place] [phone] Dec, Sore throat J02.9 [facility] [address] [id number] Sep, Yeast dermatitis of penis B3 7.49 and Exposure to chlamydia Z20.2 [place] [address] [address] Aug, [place] [address] [address] May, Diabetes E11.9 and Ingrown t oenail L60.0 [place] [address] [address] Apr, Ingrowing toenail with infec tion L60.0 [place] [address] [id number] Feb, [place] [address] [address] Jan, Diabetes E11.9 and Eczema L3 0.9 [place] [address] [address] Sep, [place] [address] [address] Sep, Type 2 diabetes mellitus wit h complication E11.8 [place] [address] [address] Aug, [place] [address] [address] Aug, Type 2 diabetes mellitus wit h unspecified complications E11.8 [place] [address] [address] Aug, Abnormal LFTs R79.89 [place] [address] [address] Aug, Abnormal LFTs R79.89 [place] [address] [address] Aug, Type 2 diabetes mellitus wit h hyperglycemia E11.65 and Diabetes mellitus without mention of complication, type II or unspecified type, uncontrolled 250.02 [facility] [address] [id number] [address] [place] [phone] Aug, [facility] [address] [id number] [address] [place] [phone] Jul, [facility] [address] [id number] [address] [place] [phone] Jul, Encounter to establish care V65.8 ; Diabetes mellitus without mention of complication, type II or unspecified type, uncontrolled 250.02 and Hypertension 401.9 [facility] [address] [id number] [address] [place] [phone] Jun, Sore throat 462 and Hyperten sandy 401.9 [facility] [address] [id number] [address] [place] [phone] Feb, [facility] [address] [id number] [address] [place] [phone] Feb, [facility] [address] [id number] [address] [place] [phone] Jul, [facility] [address] [id number] [address] [place] [phone] Jul, [facility] [address] [id number] [address] [place] [phone] Jun, [facility] [address] [id number] [address] [place] [phone] Jun, [facility] [address] [id number] [address] [place] [phone] Dec, [facility] [address] [id number] [address] [place] [phone] Dec, [facility] [address] [id number] [address] [place] [phone] Sep, [facility] [address] [id number] [address] [place] [phone] Sep, [facility] [address] [id number] [address] [place] [phone] Apr, [facility] [address] [id number] [address] [place] [phone] Apr, [facility] [address] [id number] [address] [place] [phone] Aug, [facility] [address] [id number] [address] [place] [phone] Aug, [facility] [address] [id number] [address] [place] [phone] Aug, [facility] [address] [id number] [address] [place] [phone] Aug, [facility] [address] [id number] [address] [place] [phone] Nov, IMMUNIZATIONS No Known Immunizations SOCIAL HISTORY Never Assessed REASON FOR VISIT EMR-[facility] PLAN OF CARE VITAL SIGNS MEDICATIONS Medication Instructions Dosage Frequency Start Date End Date Duration S tatus metformin 1,000 mg 1 tablet by Oral route 2 times per day Jun, Active Lisinopril-Hydrochlorothiazide 20-25 mg take 1 tablet by Oral route 1 time per day Jun, Active Amoxicillin 500 mg take 1 capsule (500 mg) by oral route every 8 hours for 30 days for 10 days Nov, Active Tessalon Perles 100 mg take 1 capsule by Oral route 3 times per day for 7 daysPRN Aug, Active Proctosol HC 2.5 % apply 1 Application to the affected area(s) by Topical route 2 times per day 114 grams Dec, Active Norvasc 10 mg 1 tablet by Oral route 1 time per day 2013 Active RESULTS No Results PROCEDURES No Known procedures INSTRUCTIONS MEDICATIONS ADMINISTERED No Known Medications MEDICAL (GENERAL) HISTORY Type Description Date Medical History hypertension Medical History type II diabetes Dx 2013 Medical History Eye exam abnormal Surgical History No Surgical history information
--- OUTSIDE RECORDS SUMMARY | 2020-03-15 02:46 | XMS REPORT ---
Author Author Tone KOHLER Organization [facility] Address [address] [place] [address] Care Team Providers Care Color Shop Helper Name Role Phone DAHIANA KOHLER Unavailable PROBLEMS Type Condition ICD9-CM Code SNZ08-TE Code Onset Dates Condition S tatus SNOMED Code Problem Diabetes E11.9 Active 353486673 Problem Ingrown toenail L60.0 Active 4002 29188 Problem Hypertension 401.9 Active 9554972 3 Problem Eye exam abnormal 793.99 Jul, Active 701829849 ALLERGIES No Information ENCOUNTERS Encounter Location Date Diagnosis [facility] [address] [id number] [address] [place] [phone] Apr, Acute costochondritis M94.0 [facility] [address] [facility] [id number] [address] [place] [phone] March, [facility] [address] [facility] [id number] [address] [place] [phone] Feb, [facility] [address] [id number] [address] [place] [phone] Feb, [facility] [address] [facility] [id number] [address] [place] [phone] Dec, Sore throat J02.9 [facility] [address] [facility] [id number] [address] [place] [phone] Sep, Yeast dermatitis of penis B3 7.49 and Exposure to chlamydia Z20.2 [facility] [address] [facility] [id number] [address] [place] [phone] Aug, [facility] [address] [facility] [id number] [address] [place] [phone] May, Diabetes E11.9 and Ingrown t oenail L60.0 [facility] [address] [facility] [id number] [address] [place] [phone] Apr, Ingrowing toenail with infec tion L60.0 [facility] [address] [id number] [address] [place] [phone] Feb, [facility] [address] [facility] [id number] [address] [place] [phone] Jan, Diabetes E11.9 and Eczema L3 0.9 [facility] [address] [facility] [id number] [address] [place] [phone] Sep, [facility] [address] [facility] [id number] [address] [place] [phone] Sep, Type 2 diabetes mellitus wit h complication E11.8 [facility] [address] [facility] [id number] [address] [place] [phone] Aug, [facility] [address] [facility] [id number] [address] [place] [phone] Aug, Type 2 diabetes mellitus wit h unspecified complications E11.8 [facility] [address] [facility] [id number] [address] [place] [phone] Aug, Abnormal LFTs R79.89 [facility] [address] [facility] [id number] [address] [place] [phone] Aug, Abnormal LFTs R79.89 [facility] [address] [facility] [id number] [address] [place] [phone] Aug, Type 2 diabetes mellitus wit h hyperglycemia E11.65 and Diabetes mellitus without mention of complication, type II or unspecified type, uncontrolled 250.02 [facility] [address] [facility] [id number] [address] [place] [phone] Aug, [facility] [address] [facility] [id number] [address] [place] [phone] Jul, [facility] [address] [facility] [id number] [address] [place] [phone] 14 Jul, 2015 Encounter to establish care V65.8 ; Diabetes mellitus without mention of complication, type II or unspecified type, uncontrolled 250.02 and Hypertension 401.9 [facility] [address] [id number] [address] [place] [phone] Jun, Sore throat 462 and Hyperten sandy 401.9 [facility] [address] [id number] [address] [place] [phone] Feb, [facility] [address] [id number] [address] [place] [phone] Feb, [facility] [address] [id number] [address] [place] [phone] Jul, [facility] [address] [id number] [address] [place] [phone] Jul, [facility] [address] [id number] [address] [place] [phone] Jun, [facility] [address] [id number] [address] [place] [phone] Jun, [facility] [address] [id number] [address] [place] [phone] Dec, [facility] [address] [id number] [address] [place] [phone] Dec, [facility] [address] [id number] [address] [place] [phone] Sep, [facility] [address] [id number] [address] [place] [phone] Sep, [facility] [address] [id number] [address] [place] [phone] Apr, [facility] [address] [id number] [address] [place] [phone] Apr, [facility] [address] [id number] [address] [place] [phone] Aug, [facility] [address] [facility] [id number] [address] [place] [phone] Aug, [facility] [address] [facility] [id number] [address] [place] [phone] Aug, [facility] [address] [facility] [id number] [address] [place] [phone] Aug, [facility] [address] [facility] [id number] [address] [place] [phone] Nov, IMMUNIZATIONS No Known Immunizations SOCIAL HISTORY Never Assessed REASON FOR VISIT rx resend PLAN OF CARE VITAL SIGNS MEDICATIONS Medication Instructions Dosage Frequency Start Date End Date Duration S tatus Albenza 200 mg Orally one time 2 tablets Feb, 1 dose Active RESULTS No Results PROCEDURES No Known procedures INSTRUCTIONS MEDICATIONS ADMINISTERED No Known Medications MEDICAL (GENERAL) HISTORY Type Description Date Medical History hypertension Medical History type II diabetes Dx 2013 Medical History Eye exam abnormal
--- OUTSIDE RECORDS SUMMARY | 2020-03-15 02:46 | XMS REPORT ---
Author Author Tone [place] Doctor Organization [facility] Address Unknown Phone Unavailable Care Team Providers Care Supervisor Dyer Name Role Phone Migration, Doctor Unavailable Unavailable PROBLEMS Type Condition ICD9-CM Code [id number] Code Onset Dates Condition S tatus SNOMED Code Problem Ingrown toenail L60.0 Active 4002 27560 Problem Diabetes E11.9 Active 902211880 Problem Eye exam abnormal 793.99 Jul, Active 293452081 Problem Hypertension 401.9 Active 8937466 3 ALLERGIES No Information ENCOUNTERS Encounter Location Date Diagnosis [facility] [address] [id number] [address] [place] [phone] Dec, Yeast dermatitis of penis B3 7.49 [facility] [address] [id number] Jul, Pain of left great toe M79.6 75 [facility] [address] [id number] Jun, Skin infection L08.9 [facility] [address] [place] [id number] [address] [place] [phone] Apr, Acute costochondritis M94.0 [facility] [address] [id number] [address] [place] [phone] March, [facility] [address] [id number] [address] [place] [phone] Feb, [facility] [address] [id number] Feb, [facility] [address] [facility] [id number] [address] [place] [phone] Dec, Sore throat J02.9 [facility] [address] [id number] Sep, Yeast dermatitis of penis B3 7.49 and Exposure to chlamydia Z20.2 [place] [address] [id number] Aug, [place] [address] [address] May, Diabetes E11.9 and Ingrown t oenail L60.0 [place] [address] [address] Apr, Ingrowing toenail with infec tion L60.0 [place] [address] [id number] Feb, [place] [address] [address] Jan, Diabetes E11.9 and Eczema L3 0.9 [place] [address] [id number] Sep, [place] [address] [address] Sep, Type 2 diabetes mellitus wit h complication E11.8 [place] [address] [phone] Aug, [place] [address] [address] Aug, Type 2 diabetes mellitus wit h unspecified complications E11.8 [place] [address] [id number] Aug, Abnormal LFTs R79.89 [place] [address] [address] Aug, Abnormal LFTs R79.89 [place] [address] [id number] Aug, Type 2 diabetes mellitus wit h hyperglycemia E11.65 and Diabetes mellitus without mention of complication, type II or unspecified type, uncontrolled 250.02 [facility] [address] [id number] [address] [place] [phone] Aug, [facility] [address] [id number] [address] [place] [phone] Jul, [facility] [address] [id number] [address] [place] [phone] Jul, Encounter to establish care V65.8 ; Diabetes mellitus without mention of complication, type II or unspecified type, uncontrolled 250.02 and Hypertension 401.9 [facility] [address] [id number] [address] [place] [phone] Jun, Sore throat 462 and Hyperten sandy 401.9 [facility] [address] [id number] [address] [place] [phone] Feb, [facility] [address] [id number] [address] [place] [phone] Feb, [facility] [address] [id number] [address] [place] [phone] Jul, [facility] [address] [id number] [address] [place] [phone] Jul, [facility] [address] [id number] [address] [place] [phone] Jun, [facility] [address] [id number] [address] [place] [phone] Jun, [facility] [address] [id number] [address] [place] [phone] Dec, [facility] [address] [id number] [address] [place] [phone] Dec, [facility] [address] [id number] [address] [place] [phone] Sep, [facility] [address] [id number] [address] [place] [phone] Sep, [facility] [address] [id number] [address] [place] [phone] Apr, [facility] [address] [facility] [id number] [address] [place] [phone] Apr, [facility] [address] [facility] [id number] [address] [place] [phone] Aug, [facility] [address] [facility] [id number] [address] [place] [phone] Aug, [facility] [address] [facility] [id number] [address] [place] [phone] Aug, [facility] [address] [facility] [id number] [address] [place] [phone] Aug, [facility] [address] [facility] [id number] [address] [place] [phone] Nov, IMMUNIZATIONS No Known Immunizations SOCIAL HISTORY Never Assessed REASON FOR VISIT [place] PLAN OF CARE VITAL SIGNS MEDICATIONS No Known Medications RESULTS No Results PROCEDURES No Known procedures INSTRUCTIONS MEDICATIONS ADMINISTERED No Known Medications MEDICAL (GENERAL) HISTORY Type Description Date Medical History hypertension Medical History type II diabetes Dx 2013 Medical History Eye exam abnormal Surgical History No Surgical history information
--- OUTSIDE RECORDS SUMMARY | 2020-03-15 02:46 | XMS REPORT ---
Author Author oTne FLEMING Organization [facility] Address [address] [place] [address] Care Team Providers Care Optoelectronics Engineer Name Role Phone CHERELLE FLEMING Unavailable PROBLEMS Type Condition ICD9-CM Code [id number] Code Onset Dates Condition S tatus SNOMED Code Problem Diabetes E11.9 Active 269886413 Problem Ingrown toenail L60.0 Active 4002 40373 Problem Hypertension 401.9 Active 4236977 3 Problem Eye exam abnormal 793.99 Jul, Active 248649624 ALLERGIES No Known Allergies ENCOUNTERS Encounter Location Date Diagnosis [facility] [address] [id number] [place] [address] Jun, Skin infection L08.9 [facility] [address] [address] Apr, Acute costochondritis M94.0 [facility] [address] [address] March, [facility] [address] [id number] [place] [address] Feb, [facility] [address] [id number] [place] [phone] Feb, [facility] [id number] [place] [phone] Dec, Sore throat J02.9 [facility] [address] [id number] [place] [address] Sep, Yeast dermatitis of penis B3 7.49 and Exposure to chlamydia Z20.2 [facility] [address] [address] Aug, [facility] [address] [facility] [id number] [address] [place] [address] May, Diabetes E11.9 and Ingrown t oenail L60.0 [facility] [address] [facility] [id number] [address] [place] [phone] Apr, Ingrowing toenail with infec tion L60.0 [facility] [address] [facility] [id number] [address] [place] [phone] Feb, [facility] [address] [facility] [id number] [address] [place] [phone] Jan, Diabetes E11.9 and Eczema L3 0.9 [facility] [address] [facility] [id number] [address] [place] [address] Sep, [place] [address] [address] [id number] [address] [place] [phone] Sep, Type 2 diabetes mellitus wit h complication E11.8 [facility] [address] [facility] [id number] [address] [place] [phone] Aug, [place] [address] [id number] [address] [place] [address] Aug, Type 2 diabetes mellitus wit h unspecified complications E11.8 [place] [address] [facility] [id number] [address] [place] [address] Aug, Abnormal LFTs R79.89 [facility] [address] [address] [id number] [address] [place] [address] Aug, Abnormal LFTs R79.89 [facility] [address] [facility] [id number] [address] [place] [address] Aug, Type 2 diabetes mellitus wit h hyperglycemia E11.65 and Diabetes mellitus without mention of complication, type II or unspecified type, uncontrolled 250.02 [facility] [address] [place] [id number] [address] [place] [address] Aug, [place] [address] [id number] [address] [place] [phone] Jul, [facility] [address] [id number] [address] [place] [phone] Jul, Encounter to establish care V65.8 ; Diabetes mellitus without mention of complication, type II or unspecified type, uncontrolled 250.02 and Hypertension 401.9 [facility] [address] [id number] [address] [place] [phone] Jun, Sore throat 462 and Hyperten sandy 401.9 [facility] [address] [id number] [address] [place] [phone] Feb, [facility] [address] [id number] [address] [place] [phone] Feb, [facility] [address] [id number] [address] [place] [phone] Jul, [facility] [address] [id number] [address] [place] [phone] Jul, [facility] [address] [id number] [address] [place] [phone] Jun, [facility] [address] [id number] [address] [place] [phone] Jun, [facility] [address] [id number] [address] [place] [phone] Dec, [facility] [address] [id number] [address] [place] [phone] Dec, [facility] [address] [id number] [address] [place] [phone] Sep, [facility] [address] [id number] [address] [place] [phone] Sep, [facility] [address] [id number] [address] [place] [phone] Apr, [facility] [address] [facility] [id number] [address] [place] [phone] Apr, [facility] [address] [facility] [id number] [address] [place] [phone] Aug, [facility] [address] [facility] [id number] [address] [place] [phone] Aug, [facility] [address] [facility] [id number] [address] [place] [phone] Aug, [facility] [address] [facility] [id number] [address] [place] [phone] Aug, [facility] [address] [facility] [id number] [address] [place] [phone] Nov, IMMUNIZATIONS No Known Immunizations SOCIAL HISTORY Never Assessed REASON FOR VISIT boil , -PT reports pain his chest this morning along with upper back pain -Jered son SUNITA PLAN OF CARE Activity Details Follow Up prn Reason:chest wall pain VITAL SIGNS Height 69 in 2018-05-13 Weight 250.6 lbs 2018-05-13 Temperature 98.9 degrees Fahrenheit 2018-05-13 Heart Rate 91 bpm 2018-05-13 Respiratory Rate 20 2018-05-13 Oximetry on room air:96 % 2018-05-13 BMI 37.00 kg/m2 2018-05-13 Blood pressure systolic 140 mmHg 2018-05-13 Blood pressure diastolic 100 mmHg 2018-05-13 MEDICATIONS Medication Instructions Dosage Frequency Start Date End Date Duration S tatus Norvasc 10 MG 1 tablet by Oral route 1 time per day 24h Jun, 30 days Not-Taking Invokana 100 MG Orally Once a day 1 tablet 24h Jan, Not-Taking Lisinopril 20 mg Orally Once a day 1 tablet 24h Jan, Not-Taking Bydureon 2 MG INJECT 2 MG SUBCUTANEOUSLY ONCE A WEEK 28 Not-Taking Albenza 200 mg Orally one time 2 tablets Feb, 1 dose Not-Taking Nystatin 018721 UNIT/GM Externally Twice a day prn 1 applica tion to affected area Sep, Not-Taking Triamcinolone Acetonide 0.1 % Externally Twice a day prn 1 a pplication to affected area Sep, Not-Taking MetFORMIN HCl ER 500 MG Orally 2 times a day 2 tablet with evening meal 12h 14 Jul, 2015 30 day(s) Not-Taking RESULTS No Results PROCEDURES No Known procedures INSTRUCTIONS MEDICATIONS ADMINISTERED No Known Medications MEDICAL (GENERAL) HISTORY Type Description Date Medical History hypertension Medical History type II diabetes Dx 2013 Medical History Eye exam abnormal
--- OUTSIDE RECORDS SUMMARY | 2020-03-15 02:46 | XMS REPORT ---
Author Author Tone [place] Doctor Organization [facility] Address Unknown Phone Unavailable Care Team Providers Care Metal Hardener Name Role Phone Migration, Doctor Unavailable Unavailable PROBLEMS Type Condition ICD9-CM Code PIR50-KG Code Onset Dates Condition S tatus SNOMED Code Problem Ingrown toenail L60.0 Active 4002 53496 Problem Diabetes E11.9 Active 038771211 Problem Eye exam abnormal 793.99 Jul, Active 583029813 Problem Hypertension 401.9 Active 3094288 3 ALLERGIES No Information ENCOUNTERS Encounter Location Date Diagnosis [facility] [address] [address] May, Dysuria R30.0 and Musculoske letal back pain M54.9 [facility] [address] [address] Dec, Yeast dermatitis of penis B3 7.49 [facility] [address] [address] Jul, Pain of left great toe M79.6 75 [facility] [address] [address] Jun, Skin infection L08.9 [facility] [address] [address] [id number] [address] [place] [phone] Apr, Acute costochondritis M94.0 [facility] [address] [place] [address] [id number] [address] [place] [address] March, [facility] [address] [address] Feb, [facility] [address] [address] Feb, [facility] [address] [id number] [address] [place] [address] Dec, Sore throat J02.9 [facility] [address] [address] Sep, Yeast dermatitis of penis B3 7.49 and Exposure to chlamydia Z20.2 [place] [address] [address] Aug, [place] [address] [address] May, Diabetes E11.9 and Ingrown t oenail L60.0 [place] [address] [address] Apr, Ingrowing toenail with infec tion L60.0 [place] [address] [address] Feb, [place] [address] [address] Jan, Diabetes E11.9 and Eczema L3 0.9 [place] [address] [address] Sep, [place] [address] [address] Sep, Type 2 diabetes mellitus wit h complication E11.8 [place] [address] [address] [id number] [address] [place] [phone] Aug, [place] [address] [address] Aug, Type 2 diabetes mellitus wit h unspecified complications E11.8 [place] [address] [address] Aug, Abnormal LFTs R79.[address] [address] Aug, Abnormal LFTs R79.89 [facility] [address] [id number] [address] [place] [address] Aug, Type 2 diabetes mellitus wit h hyperglycemia E11.65 and Diabetes mellitus without mention of complication, type II or unspecified type, uncontrolled 250.02 [facility] [address] [id number] [address] [place] [phone] Aug, [facility] [address] [id number] [address] [place] [phone] Jul, [facility] [address] [id number] [address] [place] [phone] Jul, Encounter to establish care V65.8 ; Diabetes mellitus without mention of complication, type II or unspecified type, uncontrolled 250.02 and Hypertension 401.9 [facility] [address] [id number] [address] [place] [phone] Jun, Sore throat 462 and Hyperten sandy 401.9 [facility] [address] [id number] [address] [place] [phone] Feb, [facility] [address] [facility] [id number] [address] [place] [phone] Feb, [facility] [address] [facility] [id number] [address] [place] [phone] Jul, [facility] [address] [id number] [address] [place] [phone] Jul, [facility] [address] [id number] [address] [place] [phone] Jun, [facility] [address] [facility] [id number] [address] [place] [phone] Jun, [facility] [address] [id number] [address] [place] [phone] Dec, [facility] [address] [facility] [id number] [address] [place] [phone] Dec, [facility] [address] [id number] [address] [place] [phone] Sep, [facility] [address] [id number] [address] [place] [phone] Sep, [facility] [address] [id number] [address] [place] [phone] Apr, [facility] [address] [id number] [address] [place] [phone] Apr, [facility] [address] [id number] [address] [place] [phone] Aug, [facility] [address] [id number] [address] [place] [phone] Aug, [facility] [address] [id number] [address] [place] [address] Aug, [facility] [address] [id number] [address] [place] [phone] Aug, [facility] [address] [id number] [address] [place] [phone] Nov, IMMUNIZATIONS No Known Immunizations SOCIAL HISTORY Never Assessed REASON FOR VISIT PLAN OF CARE VITAL SIGNS Height 69 in 2014-06-21 Weight 280.8 lbs 2014-06-21 Temperature 97.9 degrees Fahrenheit 2014-06-21 Heart Rate 96 bpm 2014-06-21 Respiratory Rate 20 2014-06-21 Blood pressure systolic 148 mmHg 2014-06-21 Blood pressure diastolic 100 mmHg 2014-06-21 MEDICATIONS No Known Medications RESULTS No Results PROCEDURES No Known procedures INSTRUCTIONS MEDICATIONS ADMINISTERED No Known Medications MEDICAL (GENERAL) HISTORY Type Description Date Medical History hypertension Medical History type II diabetes Dx 2013 Medical History Eye exam abnormal Surgical History No Surgical history information
--- OUTSIDE RECORDS SUMMARY | 2020-03-15 02:46 | XMS REPORT ---
Author Author Tone MCCARTY [facility] Address [address] [place] [address] Care Team Providers Care Mop Maker Name Role Phone ANGELA MCCARTYTA Unavailable PROBLEMS Type Condition ICD9-CM Code [id number] Code Onset Dates Condition S tatus SNOMED Code Problem Diabetes E11.9 Active 107742666 Problem Ingrown toenail L60.0 Active 4002 68272 Problem Hypertension 401.9 Active 5899492 3 Problem Eye exam abnormal 793.99 Jul, Active 068121981 ALLERGIES No Known Allergies ENCOUNTERS Encounter Location Date Diagnosis [facility] [address] [id number] [address] [place] [phone] Jun, Skin infection L08.9 [facility] [address] [id number] [address] [place] [phone] Apr, Acute costochondritis M94.0 [facility] [address] [address] March, [facility] [address] [id number] [address] [place] [phone] Feb, [facility] [address] [id number] [address] [place] [phone] Feb, [facility] [address] [id number] [place] [phone] Dec, Sore throat J02.9 [facility] [address] [id number] [place] [address] Sep, Yeast dermatitis of penis B3 7.49 and Exposure to chlamydia Z20.2 [facility] [address] [id number] [address] [place] [address] Aug, [facility] [address] [facility] [id number] [address] [place] [phone] May, Diabetes E11.9 and Ingrown t oenail L60.0 [facility] [address] [facility] [id number] [address] [place] [phone] Apr, Ingrowing toenail with infec tion L60.0 [facility] [address] [facility] [id number] [address] [place] [phone] Feb, [facility] [address] [facility] [id number] [address] [place] [phone] Jan, Diabetes E11.9 and Eczema L3 0.9 [facility] [address] [facility] [id number] [address] [place] [phone] Sep, [place] [address] [place] [id number] [address] [place] [phone] Sep, Type 2 diabetes mellitus wit h complication E11.8 [facility] [address] [facility] [id number] [address] [place] [phone] Aug, [place] [address] [place] [id number] [address] [place] [phone] Aug, Type 2 diabetes mellitus wit h unspecified complications E11.8 [place] [address] [facility] [id number] [address] [place] [phone] Aug, Abnormal LFTs R79.89 [facility] [address] [place] [id number] [address] [place] [phone] Aug, Abnormal LFTs R79.89 [facility] [address] [facility] [id number] [address] [place] [phone] Aug, Type 2 diabetes mellitus wit h hyperglycemia E11.65 and Diabetes mellitus without mention of complication, type II or unspecified type, uncontrolled 250.02 [facility] [address] [place] [id number] [address] [place] [phone] Aug, [place] [address] [id number] [address] [place] [id number] Jul, [facility] [address] [id number] [address] [place] [phone] Jul, Encounter to establish care V65.8 ; Diabetes mellitus without mention of complication, type II or unspecified type, uncontrolled 250.02 and Hypertension 401.9 [facility] [address] [id number] [address] [place] [phone] Jun, Sore throat 462 and Hyperten sandy 401.9 [facility] [address] [id number] [address] [place] [phone] Feb, [facility] [address] [id number] [address] [place] [phone] Feb, [facility] [address] [id number] [address] [place] [phone] Jul, [facility] [address] [id number] [address] [place] [phone] Jul, [facility] [address] [id number] [address] [place] [phone] Jun, [facility] [address] [id number] [address] [place] [id number] Jun, [facility] [address] [id number] [address] [place] [phone] Dec, [facility] [address] [id number] [address] [place] [phone] Dec, [facility] [address] [id number] [address] [place] [phone] Sep, [facility] [address] [id number] [address] [place] [phone] Sep, [facility] [address] [id number] [address] [place] [id number] Apr, [facility] [address] [facility] [id number] [address] [place] [phone] Apr, [facility] [address] [facility] [id number] [address] [place] [phone] Aug, [facility] [address] [facility] [id number] [address] [place] [phone] Aug, [facility] [address] [facility] [id number] [address] [place] [phone] Aug, [facility] [address] [facility] [id number] [address] [place] [phone] Aug, [facility] [address] [facility] [id number] [address] [place] [id number] Nov, IMMUNIZATIONS No Known Immunizations SOCIAL HISTORY Never Assessed REASON FOR VISIT red, swollen right 4th toe since yesterday. pt thinks he cut his toenail too julieta rt. verenice, called zaid et spoke with to verify medication list...pt is a poor historian. PLAN OF CARE Activity Details Follow Up 1 Week if not better Reason: toe infection VITAL SIGNS Height 69 in 2018-07-07 Weight 247.4 lbs 2018-07-07 Temperature 98.3 degrees Fahrenheit 2018-07-07 Heart Rate 90 bpm 2018-07-07 Respiratory Rate 20 2018-07-07 BMI 36.53 kg/m2 2018-07-07 Blood pressure systolic 136 mmHg 2018-07-07 Blood pressure diastolic 82 mmHg 2018-07-07 MEDICATIONS Medication Instructions Dosage Frequency Start Date End Date Duration S tatus Vascepa 1 GM Orally Twice a day 2 capsules with meals 12h Active Insulin Cartridge 3ML - Active Victoza 18 MG/3ML Active Lisinopril 10 MG Orally Once a day 1 tablet 24h Active Keflex 500 mg Orally every 12 hrs 1 capsule 12h Jun, Jun, 10 day(s) Active MetFORMIN HCl ER 500 MG Orally 2 times a day 2 tablet with evening meal 12h Jul, 30 day(s) Active RESULTS No Results PROCEDURES No Known procedures INSTRUCTIONS MEDICATIONS ADMINISTERED No Known Medications MEDICAL (GENERAL) HISTORY Type Description Date Medical History hypertension Medical History type II diabetes Dx 2013 Medical History Eye exam abnormal Surgical History No know Surgical history
--- OUTSIDE RECORDS SUMMARY | 2020-03-15 02:46 | XMS REPORT ---
Author Author Tone FLEMING Organization [facility] Address [address] [place] [address] Care Team Providers Care Channel Development Director Name Role Phone JAM FLEMING Unavailable PROBLEMS Type Condition ICD9-CM Code [id number] Code Onset Dates Condition S tatus SNOMED Code Problem Diabetes E11.9 Active 482925639 Problem Ingrown toenail L60.0 Active 4002 69362 Problem Hypertension 401.9 Active 9395323 3 Problem Eye exam abnormal 793.99 Jul, Active 236087622 ALLERGIES No Known Allergies ENCOUNTERS Encounter Location Date Diagnosis [facility] [id number] [place] [address] Jul, Pain of left great toe M79.6 75 [facility] [id number] [place] [address] Jun, Skin infection L08.9 [facility] [address] [id number] [address] [place] [address] Apr, Acute costochondritis M94.0 [facility] [address] [id number] [address] [place] [address] March, [facility] [address] [id number] [address] [place] [phone] Feb, [facility] [address] [id number] [place] [address] Feb, [facility] [id number] [place] [address] Dec, Sore throat J02.9 [facility] [id number] [place] [address] Sep, Yeast dermatitis of penis B3 7.49 and Exposure to chlamydia Z20.2 [place] [id number] [place] [address] Aug, [place] [id number] [place] [address] May, Diabetes E11.9 and Ingrown t oenail L60.0 [place] [id number] [place] [address] Apr, Ingrowing toenail with infec tion L60.0 [place] [address] [address] Feb, [place] [address] [address] Jan, Diabetes E11.9 and Eczema L3 0.9 [place] [id number] [place] [address] Sep, [place] [id number] [place] [address] Sep, Type 2 diabetes mellitus wit h complication E11.8 [place] [id number] [place] [phone] Aug, [place] [address] [address] Aug, Type 2 diabetes mellitus wit h unspecified complications E11.8 [place] [id number] [place] [address] Aug, Abnormal LFTs R79.89 [place] [id number] [place] [address] Aug, Abnormal LFTs R79.89 [place] [id number] [place] [address] Aug, Type 2 diabetes mellitus wit h hyperglycemia E11.65 and Diabetes mellitus without mention of complication, type II or unspecified type, uncontrolled 250.02 [facility] [address] [id number] [address] [place] [phone] Aug, [facility] [address] [id number] [address] [place] [address] Jul, [facility] [address] [id number] [address] [place] [phone] Jul, Encounter to establish care V65.8 ; Diabetes mellitus without mention of complication, type II or unspecified type, uncontrolled 250.02 and Hypertension 401.9 [facility] [address] [id number] [address] [place] [address] Jun, Sore throat 462 and Hyperten sandy 401.9 [facility] [address] [id number] [address] [place] [phone] Feb, [facility] [address] [id number] [address] [place] [phone] Feb, [facility] [address] [id number] [address] [place] [phone] Jul, [facility] [address] [id number] [address] [place] [phone] Jul, [facility] [address] [id number] [address] [place] [address] Jun, [facility] [address] [id number] [address] [place] [phone] Jun, [facility] [address] [id number] [address] [place] [address] Dec, [facility] [address] [id number] [address] [place] [address] Dec, [facility] [address] [id number] [address] [place] [phone] Sep, [facility] [address] [id number] [address] [place] [address] Sep, [facility] [address] [id number] [address] [place] [address] Apr, [facility] [address] [id number] [address] [place] [address] Apr, [facility] [address] [id number] [address] [place] [address] Aug, [facility] [address] [id number] [address] [place] [address] Aug, [facility] [address] [id number] [address] [place] [address] Aug, [facility] [address] [id number] [address] [place] [address] Aug, [facility] [address] [id number] [address] [place] [address] Nov, IMMUNIZATIONS No Known Immunizations SOCIAL HISTORY Never Assessed REASON FOR VISIT toenail infection Pt feels he might be getting an infection in his toenail, zhanna ng diabetic he wanted to have it looked at [facility] PLAN OF CARE Activity Details Follow Up w/ PCP Reason:if symptoms wo rsen VITAL SIGNS Height 69 in 2018-08-12 Weight 248.0 lbs 2018-08-12 Temperature 97.9 degrees Fahrenheit 2018-08-12 Heart Rate 88 bpm 2018-08-12 Respiratory Rate 18 2018-08-12 BMI 36.62 kg/m2 2018-08-12 Blood pressure systolic 128 mmHg 2018-08-12 Blood pressure diastolic 94 mmHg 2018-08-12 MEDICATIONS Medication Instructions Dosage Frequency Start Date End Date Duration S tatus Lisinopril 10 MG Orally Once a day 1 tablet 24h Active Vascepa 1 GM Orally Twice a day 2 capsules with meals 12h Active Victoza 18 MG/3ML Active MetFORMIN HCl ER 500 MG Orally 2 times a day 2 tablet with evening meal 12h Jul, 30 day(s) Active Insulin Cartridge 3ML - Active RESULTS No Results PROCEDURES No Known procedures INSTRUCTIONS MEDICATIONS ADMINISTERED No Known Medications MEDICAL (GENERAL) HISTORY Type Description Date Medical History hypertension Medical History type II diabetes Dx 2013 Medical History Eye exam abnormal Surgical History No Surgical history information
--- OUTSIDE RECORDS SUMMARY | 2020-03-15 02:46 | XMS REPORT ---
Author Author Tone [place] Doctor Organization [facility] Address Unknown Phone Unavailable Care Team Providers Care Machine Cage Maker Name Role Phone Migration, Doctor Unavailable Unavailable PROBLEMS Type Condition ICD9-CM Code [id number] Code Onset Dates Condition S tatus SNOMED Code Problem Ingrown toenail L60.0 Active 4002 19732 Problem Alcohol abuse F10.10 Active 793235 05 Problem Essential hypertension I10 Active 73148074 Problem Diabetes E11.9 Active 592546859 Problem residential (current) use of insulin Z79.4 Active 326765017 Problem Type 2 diabetes mellitus with hyperglycemia E11.65 Active 84180998 Problem Essential (primary) hypertension I10 Active 50190911 ALLERGIES No Information ENCOUNTERS Encounter Location Date Diagnosis [facility] [address] [address] Feb, [facility] [address] [address] Jan, Type 2 diabetes mellitus with hyperglyce elida E11.65 ; Alcohol abuse F10.10 and Essential hypertension I10 [facility] [id number] [place] [address] Dec, Alcohol abuse F10.10 and Diabetes E11.9 [facility] [address] [address] Nov, [facility] [address] [address] Sep, [facility] [address] [address] Sep, Type 2 diabetes mellitus with hyperglyce elida E11.65 ; residential (current) use of insulin Z79.4 ; Diabetes E11.9 and Essential (primary) hypertension I10 [facility] [address] [facility] [id number] [address] [address] Sep, Elevated blood pressure read ing R03.0 [facility] [address] [address] Sep, Upper back strain, initial e ncounter S29.012A [facility] [address] [address] May, Dysuria R30.0 and Musculoske letal back pain M54.9 [facility] [address] [address] Dec, Yeast dermatitis of penis B3 7.49 [facility] [address] [address] Jul, Pain of left great toe M79.6 75 [facility] [address] [address] Jun, Skin infection L08.9 [place] [address] [address] Apr, Acute costochondritis M94.0 [place] [address] [address] March, [place] [address] [address] Feb, [place] [address] [address] Feb, [facility] [address] [address] Dec, Sore throat J02.9 [place] [address] [address] Sep, Yeast dermatitis of penis B37.49 and Exp osure to chlamydia Z20.2 [place] [address] [address] Aug, [place] [address] [address] 05 May, 2016 Diabetes E11.9 and Ingrown toenail L60.0 [place] [address] [address] Apr, Ingrowing toenail with infection L60.0 [facility] [address] [address] 14 Feb, 2016 [facility] [address] [address] Jan, Diabetes E11.9 and Eczema L30.9 [place] [address] [address] Sep, [place] [address] [address] Sep, Type 2 diabetes mellitus with complicati on E11.8 [place] [address] [address] Aug, [place] [address] [address] Aug, Type 2 diabetes mellitus with unspecifie d complications E11.8 [place] [address] [address] Aug, Abnormal LFTs R79.89 [place] [address] [address] Aug, Abnormal LFTs R79.89 [place] [address] [address] Aug, Type 2 diabetes mellitus with hyperglyce elida E11.65 and Diabetes mellitus without mention of complication, type II or unspecified type, uncontrolled 250.02 [place] [address] [address] Aug, [place] [address] [address] Jul, [place] [address] [address] Jul, Encounter to establish care V65.8 ; Diab etes mellitus without mention of complication, type II or unspecified type, uncontrolled 250.02 and Hypertension 401.9 [facility] [address] [address] Jun, Sore throat 462 and Hypertension 401.9 [facility] [address] [address] Feb, [facility] [address] [address] Feb, [facility] [address] [address] Jul, [facility] [address] [address] Jul, [facility] [address] [address] Jun, [facility] [address] [address] Jun, [facility] [address] [address] Dec, [facility] [address] [address] Dec, [facility] [address] [address] Sep, [facility] [address] [address] Sep, [facility] [address] [address] Apr, [facility] [address] [address] Apr, [facility] [address] [address] Aug, [facility] [address] [address] Aug, [facility] [address] [facility] [id number] [place] [address] Aug, [facility] [address] [id number] [place] [address] Aug, [facility] [address] [facility] [id number] [place] [address] Nov, IMMUNIZATIONS No Known Immunizations SOCIAL HISTORY Never Assessed REASON FOR VISIT PLAN OF CARE VITAL SIGNS Height 69 in 2014-01-11 Weight 281.6 lbs 2014-01-11 Temperature 98 degrees Fahrenheit 2014-01-11 Heart Rate 92 bpm 2014-01-11 Respiratory Rate 20 2014-01-11 Blood pressure systolic 156 mmHg 2014-01-11 Blood pressure diastolic 100 mmHg 2014-01-11 MEDICATIONS Unknown Medications RESULTS No Results PROCEDURES Procedure Date Ordered Result Body Site GLYCATED HEMOGLOBIN TEST Jan 11, 2014 MICROALBUMIN, SEMIQUANT Jan 11, 2014 MICROALBUMIN, QUANTITATIVE Jan 11, 2014 INSTRUCTIONS MEDICATIONS ADMINISTERED No Known Medications MEDICAL (GENERAL) HISTORY Type Description Date Medical History hypertension Medical History type II diabetes Dx 2013 Medical History Eye exam abnormal Surgical History No Surgical history information
--- OUTSIDE RECORDS SUMMARY | 2020-03-15 02:47 | XMS REPORT | Continuity of Care Document ---
Author Organization Unknown Address Unknown Phone Unavailable Allergies Active Description Code Type Severity Reaction Onset Reported/Identified Relationship to Patient Clinical Status Yes No Known Drug Allergies [id number] Drug Allergy Unknown N/A 10/18/2012 Medications There is no data. Problems Date Dx Coded Attending Type Code Diagnosis Diagnosed By 01/09/2010 401.1 HYPE RTENSION, BENIGN ESSENTIAL 01/09/2010 MAYELA DDS, PEGGY F 40 1.1 HYPERTENSION, BENIGN ESSENTIAL 01/09/2010 CASTANO DO ADAL K 401.1 HYPERTENSION, BENIGN ESSENTIAL 01/09/2010 CASTANO DO ADAL K 401.1 HYPERTENSION, BENIGN ESSENTIAL 01/09/2010 CASTANO DO ADAL K 401.1 HYPERTENSION, BENIGN ESSENTIAL 12/12/2011 462 PHARYN GITIS ACUTE 12/12/2011 MAYELA DDS, PEGGY F 46 2 PHARYNGITIS ACUTE 12/12/2011 CASTANO DO, ADAL K 462 PHARYNGITIS ACUTE 12/12/2011 CASTANO DO ADAL K 462 PHARYNGITIS ACUTE 12/12/2011 CASTANO DO, ADAL K 462 PHARYNGITIS ACUTE 09/16/2012 465.9 UPPE R RESPIRATORY INFECTION 09/16/2012 784.49 NINOSKA RSENESS 09/16/2012 786.2 COUGH 09/16/2012 MAYELA DDS, PEGGY F 46 5.9 UPPER RESPIRATORY INFECTION 09/16/2012 MAYELA DDS, PEGGY F 784.49 HOARSENESS 09/16/2012 MAYELA DDS, PEGGY F 78 6.2 COUGH 09/16/2012 CASTANO DO ADAL K 465.9 UPPER RESPIRATORY INFECTION 09/16/2012 CASTANO DO, ADAL K 784.49 HOARSENESS 09/16/2012 CASTANO DO, ADAL K 786.2 COUGH 09/16/2012 CASTANO DO, ADAL K 465.9 UPPER RESPIRATORY INFECTION 09/16/2012 CASTANO DO, ADAL K 784.49 HOARSENESS 09/16/2012 CASTANO DO, ADAL K 786.2 COUGH 09/16/2012 OMAIRA CAMPA ADAL K 465.9 UPPER RESPIRATORY INFECTION 09/16/2012 OMAIRA CAMPA ADAL K 784.49 HOARSENESS 09/16/2012 CASTANO DO ADAL K 786.2 COUGH 10/18/2012 Ot 845.00 SPR AIN OF ANKLE NOS 10/18/2012 Ot 959.7 LOWE R LEG INJURY NOS 10/18/2012 Ot E000.8 OTH ER EXTERNAL CAUSE STATUS 10/18/2012 Ot E849.0 ACC IDENT IN HOME 10/18/2012 Ot E884.9 FAL L-1 LEVEL TO OTH NEC 05/11/2013 250.02 NOELLE BETES MELLITUS WITHOUT MENTION OF COMPLICATION TYPE II OR UNSPECIFIED TYPE UNCONTROLLED 05/11/2013 788.42 SANDOVAL YURIA 05/11/2013 V18.0 FAMI LY HISTORY OF DIABETES MELLITUS 05/11/2013 MAYELA DDS, PEGGY F 250.02 DIABETES MELLITUS WITHOUT MENTION OF COM PLICATION TYPE II OR UNSPECIFIED TYPE UNCONTROLLED 05/11/2013 MAYELA DDS, PEGGY F 788.42 POLYURIA 05/11/2013 MAYELA DDS, PEGGY F V1 8.0 FAMILY HISTORY OF DIABETES MELLITUS 05/11/2013 CASTANO DO ADAL K 250.02 DIABETES MELLITUS WITHOUT MENTION OF COMPLICATION TYPE II OR UNSPECIFIED TYPE UNCONTROLLED 05/11/2013 CASTANO DO, ADAL K 788.42 POLYURIA 05/11/2013 CASTANO DO, ADAL K V18.0 FAMILY HISTORY OF DIABETES MELLITUS 05/11/2013 OMAIRA CAMPA ADAL K 250.02 DIABETES MELLITUS WITHOUT MENTION OF COMPLICATION TYPE II OR UNSPECIFIED TYPE UNCONTROLLED 05/11/2013 CASTANO DO ADAL K 788.42 POLYURIA 05/11/2013 CASTANO DO ADAL K V18.0 FAMILY HISTORY OF DIABETES MELLITUS 05/11/2013 CASTANO DO, ADAL K 250.02 DIABETES MELLITUS WITHOUT MENTION OF COMPLICATION TYPE II OR UNSPECIFIED TYPE UNCONTROLLED 05/11/2013 CASTANO DO, ADAL K 788.42 POLYURIA 05/11/2013 CASTANO DO, ADAL K V18.0 FAMILY HISTORY OF DIABETES MELLITUS 01/11/2014 CASTANO DO ADAL K 455.6 HEMORRHOIDS NOS 01/11/2014 OMAIRA CAMPA ADAL K 564.00 CONSTIPATION 01/11/2014 ADAL CASTANO DO 455.6 HEMORRHOIDS NOS 01/11/2014 ADAL CASTANO DO 564.00 CONSTIPATION 01/11/2014 ADAL CASTANO DO 455.6 HEMORRHOIDS NOS 01/11/2014 ADAL CASTANO DO 564.00 CONSTIPATION 06/21/2014 ADAL CASTANO DO 780.79 OTHER MALAISE AND FATIGUE 06/21/2014 ADAL CASTANO DO 780.79 OTHER MALAISE AND FATIGUE 08/16/2014 ADAL CASTANO DO V15.81 PERSONAL HISTORY OF NONCOMPLIANCE WITH MEDICAL TREATMENT PRESENTING HAZARDS TO HEALTH 08/06/2017 WILTON BEAUCHAMP APRN Ot R07.89 OTHER CHEST PAIN 08/06/2017 WILTON BEAUCHAMP APRN Ot S20.211A CONTUSION OF RIGHT FRONT WALL OF THORAX, 08/06/2017 WILTON BEAUCHAMP APRN Ot W18.39XA OTHER FALL ON SAME LEVEL, INITIAL ENCOUN 08/06/2017 WILTON BEAUCHAMP APRN Ot Y93.56 ACTIVITY, JUMPING ROPE 10/16/2017 GINNY LEOS MD Ot E11.9 TYPE 2 DIABETES MELLITUS WITHOUT COMPLIC 10/16/2017 GINNY LEOS MD Ot I10 ESSENTIAL (PRIMARY) HYPERTENSION 10/16/2017 GINNY LEOS MD Ot L29.9 PRURITUS, UNSPECIFIED 10/16/2017 GINNY LEOS MD Ot L50.0 ALLERGIC URTICARIA 10/16/2017 GINNY LEOS MD Ot T78.49XA OTHER ALLERGY, INITIAL ENCOUNTER Procedures Code Description [place] [address] A1C (IN-HOUSE) 05/11/2013 84826 MICR O ALBUMIN-IN HOUSE 01/11/2014 88219 A1C (IN-HOUSE) 01/11/2014 40641 MICR OALBUMIN 01/11/2014 58765 MICR O ALBUMIN-IN HOUSE 01/11/2014 Results There is no data. Encounters ACCT No. Visit Date/Time Discharge Status Pt. Type Provider Facility Loc./Unit Complaint [id number] 08/16/2014 17:21:00 08/16/2014 23:59: 59 CLS Outpatient ADAL CASTANO DO [id number] 06/21/2014 17:24:00 06/21/2014 23:59: 59 CLS Outpatient CASTANO ADAL [id number] 01/11/2014 14:13:00 01/11/2014 23:59: 59 CLS Outpatient OMAIRA CAMPA ADAL Marcos [id number] 10/03/2012 15:09:00 10/03/2012 23:59: 59 CLS Outpatient PEGGY PEDRO DDS [id number] 05/11/2013 17:41:00 Document Registration [id number] 10/16/2017 00:01:00 01:19:00 DIS Emergency GINNY LEOS MD Via [facility] ER RASH ALL OVER [id number] 08/06/2017 20:31:00 017 21:43:00 DIS Emergency WILTON BEAUCHAMP APRN [facility] ER CHEST PAIN [id number] 03/15/2020 02:42:[address] Emergency GINNY LEOS MD [facility] ER MUNOZ,HIGH BLOOD PRESSURE 168/1 12,VOMITING [id number] 10/18/2012 17:58:00 Document Registration [id number] 03/05/2020 14:35:00 03/05/2020 23:59:5 9 CLS Outpatient [facility]IRA [facility]
[2020-03-15] MEDS ORDERED: KETOROLAC 30 MG/ML VIAL IVP STA (02:54)
[2020-03-15] MEDS ORDERED: LACTATED RINGERS 1,000 ML IV ONE (02:54)
[2020-03-15] MEDS ORDERED: lisINopril 20 MG (PRINIVIL) TABLET PO ONE (03:00)
[2020-03-15 03:17] LABS: BASOPHILS % (AUTO) 1 % (0-10); EOSINOPHILS # (AUTO) 0.1 10^3/uL (0.0-0.3); EOSINOPHILS % (AUTO) 2 % (0-10); HEMATOCRIT 47 % (40-54); LYMPHOCYTES % (AUTO) 40 % (12-44); MEAN CORPUSCULAR HEMOGLOBIN 31 PG (25-34); MEAN CORPUSCULAR HGB CONC 34 G/DL (32-36); MEAN CORPUSCULAR VOLUME 89 FL (80-99); MEAN PLATELET VOLUME 10.7 FL (7.4-10.4); MONOCYTES # (AUTO) 0.3 X 10^3 (0.0-1.0); MONOCYTES % (AUTO) 7 % (0-12); NEUTROPHILS # (AUTO) 2.6 X 10^3 (1.8-7.8); NEUTROPHILS % (AUTO) 52 % (42-75); PLATELET COUNT 184 10^3/uL (130-400)
[2020-03-15 03:30] LABS: CHLORIDE 104 MMOL/L (98-107); POTASSIUM 4.1 MMOL/L (3.6-5.0); SODIUM 139 MMOL/L (135-145)
[2020-03-15 03:31] LABS: ALBUMIN 4.1 GM/DL (3.2-4.5)
[2020-03-15 03:32] LABS: CALCIUM 8.9 MG/DL (8.5-10.1)
[2020-03-15 03:33] LABS: GLUCOSE 291 MG/DL (70-105); TOTAL PROTEIN 7.7 GM/DL (6.4-8.2)
[2020-03-15 03:34] LABS: CARBON DIOXIDE 23 MMOL/L (21-32)
[2020-03-15 03:35] LABS: BILIRUBIN,TOTAL 0.2 MG/DL (0.1-1.0)
[2020-03-15 03:37] LABS: ALKALINE PHOSPHATASE 91 U/L (40-136); CREATININE SERUM 0.96 MG/DL (0.60-1.30); GFR ESTIMATED > 60
[2020-03-15 03:38] LABS: ACETAMINOPHEN < 10 UG/ML (10-30); BUN/CREATININE RATIO 10
[2020-03-15 03:40] LABS: ALANINE AMINOTRANSFERASE 37 U/L (0-55)
--- NOTE | 2020-03-15 03:48 | ED Headache ---
General Chief Complaint: Head/Cervical Problems Stated Complaint: MUNOZ,HIGH BLOOD PRESSURE 168/112,VOMITING Nursing Triage Note: PT PRESENTS TO THE ED C/O HEADACHE THAT ONSET TWO HOURS AGO, PT DENIES MIGRAIN HX, STATES HE DRANK 15 BEERS THROUGH THE DAY AND EVENING, HEADACHE ONSEWT SHORTLY AFTER HE STOPPED DRINKING Nursing Sepsis Screen: No Definite Risk Source: patient Exam Limitations: no limitations History of Present Illness Date Seen by Provider: Mar 15, 2020 Time Seen by Provider: 02:48 Initial Comments Here with report of headache. His states the headache is global and started a few hours ago. He took 6 Tylenol. Headache wasn't better and he tried to make himself vomit. That didn't work so he presented here for evaluation. He is concerned about his blood pressure. States he did not take his blood pressure medicine because he's been drinking beers all day. States he drank about 15 beers throughout the evening. He states he drank the beer because he was off work. Denies chest pain or breathing problems. Denies fever or chills. Has known history of hypertension and takes lisinopril he believes. Timing/Duration: 1-3 hours Severity/Quality: moderate, pressure Location: global Prior Headaches/Recent Trauma: no recent headache/trauma, occasional headaches Associated Symptoms: No confusion, No fever/chills, No nasal congestion, No weakness Allergies and Home Medications Allergies Coded Allergies: No Known Drug Allergies (Unverified , 10/18/12) Home Medications Prednisone 20 Mg Tab, 40 MG PO DAILY Prescribed by: GINNY LEOS on 10/16/17 0107 Patient Home Medication List Home Medication List Reviewed: Yes Review of Systems Review of Systems Constitutional: no symptoms reported Eyes: No Symptoms Reported Ears, Nose, Mouth, Throat: no symptoms reported Respiratory: No cough, No short of breath Cardiovascular: No chest pain Gastrointestinal: No abdominal pain, No nausea, No vomiting Genitourinary: no symptoms reported Musculoskeletal: no symptoms reported Skin: no symptoms reported Psychiatric/Neurological: See HPI, Headache; Denies Weakness Past Qdugmkg-Bzbngi-Ypawzy Hx Past Med/Social Hx: Reviewed Nursing Past Med/Soc Hx Patient Social History Alcohol Use: Regular Use Number of Drinks Today: 15 Alcohol Beverage of Choice: Beer Recreational Drug Use: No 2nd Hand Smoke Exposure: No Recent Foreign Travel: No Contact w/Someone Who Travel: No Recent Infectious Disease Expo: No Recent Hopitalizations: No Physical Abuse: No Sexual Abuse: No Mistreated: No Fear: No Immunizations Up To Date Tetanus Booster (TDap): Unknown Seasonal Allergies Seasonal Allergies: No Past Medical History Surgeries: No Respiratory: No Cardiac: Yes Hypertension Neurological: No Genitourinary: No Gastrointestinal: No Musculoskeletal: No Endocrine: Yes Diabetes, Non-Insulin dep HEENT: No Cancer: No Psychosocial: No Integumentary: No Family Medical History Reviewed Nursing Family Hx No Pertinent Family Hx Physical Exam Vital Signs Vital Signs - First Documented 03/15/20 02:48 Temp 36.7 Pulse 105 Resp 20 B/P (MAP) 139/104 (116) Pulse Ox 96 O2 Delivery Room Air Capillary Refill : Less Than 3 Seconds Height, Weight, BMI Height: 5'9.00" Weight: 265lbs. oz. [id number]; 35.00 BMI Method:Stated General Appearance: WD/WN, mild distress HEENT: PERRL/EOMI, TMs normal, pharynx normal Neck: full range of motion, supple Cardiovascular: no murmur, tachycardia Respiratory: lungs clear, normal breath sounds Gastrointestinal: non tender, soft Back: normal inspection, no CVA tenderness, no vertebral tenderness Extremities: normal range of motion, non-tender, normal inspection Psychiatric: alert, oriented x 3 Crainal Nerves: normal hearing, normal speech, PERRL Coordination/Gait: normal gait Motor/Sensory: no motor deficit, no sensory deficit Skin: normal color, warm/dry Progress/Results/Core Measures Results/Orders Lab Results Laboratory Tests Test 03/15/20 03:00 Range/Units White Blood Count 5.0 4.3-11.0 10^3/uL Red Blood Count 5.24 4.35-5.85 10^6/uL Hemoglobin 16.0 13.3-17.7 G/DL Hematocrit 47 40-54 % Mean Corpuscular Volume 89 80-99 FL Mean Corpuscular Hemoglobin 31 25-34 PG Mean Corpuscular Hemoglobin Concent 34 32-36 G/DL Red Cell Distribution Width 12.0 10.0-14.5 % Platelet Count 184 130-400 10^3/uL Mean Platelet Volume 10.7 H 7.4-10.4 FL Neutrophils (%) (Auto) 52 42-75 % Lymphocytes (%) (Auto) 40 12-44 % Monocytes (%) (Auto) 7 0-12 % Eosinophils (%) (Auto) 2 0-10 % Basophils (%) (Auto) 1 0-10 % Neutrophils # (Auto) 2.6 1.8-7.8 X 10^3 Lymphocytes # (Auto) 2.0 1.0-4.0 X 10^3 Monocytes # (Auto) 0.3 0.0-1.0 X 10^3 Eosinophils # (Auto) 0.1 0.0-0.3 10^3/uL Basophils # (Auto) 0.0 0.0-0.1 10^3/uL Sodium Level 139 135-145 MMOL/L Potassium Level 4.1 3.6-5.0 MMOL/L Chloride Level 104 98-107 MMOL/L Carbon Dioxide Level 23 21-32 MMOL/L Anion Gap 12 5-14 MMOL/L Blood Urea Nitrogen 10 7-18 MG/DL Creatinine 0.96 0.60-1.30 MG/DL Estimat Glomerular Filtration Rate > 60 BUN/Creatinine Ratio 10 Glucose Level 291 H 70-105 MG/DL Calcium Level 8.9 8.5-10.1 MG/DL Corrected Calcium 8.8 8.5-10.1 MG/DL Total Bilirubin 0.2 0.1-1.0 MG/DL Aspartate Amino Transf (AST/SGOT) 23 5-34 U/L Alanine Aminotransferase (ALT/SGPT) 37 0-55 U/L Alkaline Phosphatase 91 40-136 U/L C-Reactive Protein High Sensitivity 0.20 0.00-0.50 MG/DL Total Protein 7.7 6.4-8.2 GM/DL Albumin 4.1 3.2-4.5 GM/DL Acetaminophen Level < 10 L 10-30 UG/ML Serum Alcohol 192 H <10 MG/DL My Orders Orders - GINNY LEOS MD Ed Iv/Invasive Line Start (03/15/20 02:54) Lactated Ringers (Lr 1000 Ml Iv Solution (03/15/20 02:54) Ketorolac Injection (Toradol Injection) (03/15/20 02:54) Acetaminophen (03/15/20 02:54) Alcohol (03/15/20 02:54) Cbc With Automated Diff (03/15/20 02:54) Comprehensive Metabolic Panel (03/15/20 02:54) Hs C Reactive Protein (03/15/20 02:58) Lisinopril Tablet (Zestril Tablet) (03/15/20 03:00) Medications Given in ED Current Medications Medications Dose Ordered Sig/Ame Route Start Time Stop Time Status Last Admin Dose Admin Lactated Ringer's 1,000 ml @ 0 mls/hr Q0M ONCE IV 03/15/20 02:54 03/15/20 02:58 DC 03/15/20 03:16 1,000 MLS/HR Lisinopril 20 mg ONCE ONCE PO 03/15/20 03:00 03/15/20 03:01 DC 03/15/20 03:21 20 MG Vital Signs/I&O 03/15/20 02:48 Temp 36.7 Pulse 105 Resp 20 B/P (MAP) 139/104 (116) Pulse Ox 96 O2 Delivery Room Air Blood Pressure Mean: 116 Progress Progress Note : Progress Note Seen and evaluated. IV, labs, LR 1 L bolus, Toradol 30 mg IV and lisinopril 20 mg by mouth. Monitor patient. 0422: Patient is feeling better. Blood sugar noted to be elevated in the 200s and patient admits to diabetes. He is on medicine for that. I did discuss with him about avoiding alcohol and he verbalized understanding. Discussed with him to follow-up with his doctor as well. Discharged home with return precautions. Patient verbalize understanding instructions and agreement with plan. Departure Impression Primary Impression: Headache Qualified Codes: R51 - Headache Additional Impressions: Alcohol intoxication Qualified Codes: F10.920 - Alcohol use, unspecified with intoxication, uncomplicated Hypertension Qualified Codes: I10 - Essential (primary) hypertension Uncontrolled diabetes mellitus Qualified Codes: E11.65 - Type 2 diabetes mellitus with hyperglycemia Disposition: HOME, SELF-CARE Condition: Stable Departure-Patient Inst. Decision time for Depature: 04:24 Referrals: [facility] (PCP) Primary Care Physician NENA TEIXEIRA (Family) Primary Care Physician Patient Instructions: Headache, Adult (DC), High Blood Pressure (DC), Type 2 Diabetes, Alcohol Abuse and Alcoholism (DC) Add. Discharge Instructions: All discharge instructions reviewed with patient and/or family. Voiced understanding. Take medications as previously prescribed. Follow-up with your doctor this week for recheck and further evaluation. You should avoid drinking alcohol. Do not take medicines but greater doses than recommended as this is dangerous. Drink plenty of fluids. Return for worse pain, fever, vomiting, weakness, breathing problems or other concerns as needed. Copy Copies To 1: ADAL CASTANO TIMOTHY D MD Mar 15, 2020 03:48
[2020-03-15 04:31] VITALS: BP 130/96
== END 2020-03-15 04:31 | disposition home or self-care (01) ==
LOC: EDUNIT# 02:37 → ER 02:42
DX: I10 Essential (primary) hypertension (principal); E11.65 Type 2 diabetes mellitus with hyperglycemia; F10.920 Alcohol use, unspecified with intoxication, uncomplicated; Z79.899 Other long term (current) drug therapy
CPT/HCPCS: 36415; 80053; 80320; 80329; 85025; 86141